=== PATIENT | female | born 1945 | race Caucasian/White ===

== ENCOUNTER → 2016-05-11 | Outpatient (CLI) | payer OTHER ==
[~2016-05-11] MED LIST: ADULT LOW DOSE81 MG; CITRACAL + D M1 EACH; CO Q-10100 MG PO; FAMVIR500 MG PO; FISH OIL 1,4001 EACH; LIPITOR20 MG; PERCOCET 5-3251 EACH PO; PROBIOTIC1 EAC1; TOPROL XL100 MG PO; VALSARTAN-HCTZ1 EACH; VITAMINC500
== END ==
LOC: RAD 14:19
DX: Z12.31 Encounter for screening mammogram for malignant neoplasm of breast (principal)

== ENCOUNTER → 2016-10-25 | Outpatient (CLI) | payer OTHER ==
--- NOTE | ~2016-10-25 | EKG ---
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
== END ==
LOC: CV 14:05
DX: E11.9 Type 2 diabetes mellitus without complications (principal)

== ENCOUNTER → 2017-05-16 | Outpatient (CLI) | payer OTHER ==
[~2017-05-16] MED LIST changes: -ADULT LOW DOSE81 MG; +ADULT LOW DOSE81 MG PO; +ALLOPURINOL 10100 M1 PO; +COLCHICINE0.6 MG PO; -FISH OIL 1,4001 EACH; +FISH OIL 1,4001 EACH PO; +GABAPENTIN 100100 MG PO; +HYDROCODONE-AP1 EAC6 PO; +INDOMETHACIN 2525 MG PO; -LIPITOR20 MG; +LIPITOR20 MG PO; +METFORMIN HCL500 MG PO; +MUCINEX600 MG PO; +PROBIOTIC1 EAC2 PO; +SENNA-DOCUSATE1 EACH PO; +TESSALON PERLE100 MG PO; +VALSARTAN-HCTZ1 EAC3 PO
== END ==
LOC: RAD 14:38
DX: Z12.31 Encounter for screening mammogram for malignant neoplasm of breast (principal)

== ENCOUNTER → 2017-10-19 | Outpatient (CLI) | payer OTHER ==
[2017-10-11 09:08] LABS: HEMATOCRIT 39.9 % (37.0-47.0); HEMOGLOBIN 13.5 gm/dL (12.0-15.0); MCH 29.7 pg (26.0-34.0); MCHC 33.9 g/dL (28.0-37.0); MCV 87.6 fL (80.0-100.0); RBC 4.55 mil/uL (4.20-5.00)
[2017-10-11 09:09] LABS: URINE BILIRUBIN NEGATIVE (Negative); URINE BLOOD NEGATIVE (Negative); URINE CLARITY CLEAR; URINE COLOR YELLOW; URINE GLUCOSE-RANDOM* NEGATIVE (Negative); URINE KETONES NEGATIVE (Negative); URINE NITRITE-REFLEX NEGATIVE (Negative); URINE PROTEIN (DIPSTICK) NEGATIVE (Negative); URINE SPECIFIC GRAVITY 1.025 (1.005-1.035); URINE UROBILINOGEN 0.2 E.U./dl (0.2-1.0)
[2017-10-11 09:11] LABS: URINE LEUKOCYTES-REFLEX TRACE (Negative)
[2017-10-11 09:16] LABS: CALCIUM 9.9 mg/dL (8.5-10.1); CREATININE 1.1 mg/dL (0.6-1.0); POTASSIUM 4.3 mmol/L (3.5-5.1)
[2017-10-11 09:22] LABS: PROTIME 9.7 Seconds (9.3-11.4)
[~2017-10-19] VITALS: Ht 162.6 cm; Wt 79.4 kg
--- NOTE | ~2017-10-19 | EKG ---
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
== END ==
LOC: PRE 09-18 11:20 → TBA 05:41 → LABMALL 05:48 → PRE 05:49 → EDSTATUS 18:12
PROVIDERS: Orthopaedic Surgery
DX: M17.12 Unilateral primary osteoarthritis, left knee (principal); E11.9 Type 2 diabetes mellitus without complications

== ENCOUNTER 2017-10-22 05:40 | Emergency (ER) | payer OTHER ==
[~2017-10-22] VITALS: Ht 162.6 cm; Wt 80.3 kg
[~2017-10-22 05:40] MED LIST changes: -COLCHICINE0.6 MG PO; -HYDROCODONE-AP1 EAC6 PO; -INDOMETHACIN 2525 MG PO; -SENNA-DOCUSATE1 EACH PO
[2017-10-22] MEDS ORDERED: SENNA-DOCUSATE1 EACH PO (06:42)
[2017-10-22] MEDS ORDERED: HYDROCODONE-AP1 EAC6 PO (06:42)
[2017-10-22] MEDS ORDERED: COLCHICINE0.6 MG PO (06:42)
[2017-10-22] MEDS ORDERED: INDOMETHACIN 2525 MG PO (06:42)
== END 2017-10-22 07:22 | disposition home or self-care (01) ==
LOC: ER 05:40
DX: M10.071 Idiopathic gout, right ankle and foot (principal); I10 Essential (primary) hypertension; E11.9 Type 2 diabetes mellitus without complications; E78.00 Pure hypercholesterolemia, unspecified; Z88.1 Allergy status to other antibiotic agents

== ENCOUNTER → 2017-11-16 | Outpatient (CLI) | payer OTHER ==
[~2017-11-16] MED LIST changes: +COLCHICINE0.6 MG PO; +HYDROCODONE-AP1 EAC6 PO; +INDOMETHACIN 2525 MG PO; +SENNA-DOCUSATE1 EACH PO
== END ==
LOC: CAT 08:32
DX: Z13.6 Encounter for screening for cardiovascular disorders (principal); E78.00 Pure hypercholesterolemia, unspecified

== ENCOUNTER → 2018-05-24 | Outpatient (CLI) | payer OTHER | LOC: ULTRA 09:41 | DX: R68.89 Other general symptoms and signs (principal) ==

== ENCOUNTER 2018-09-26 09:49 | Inpatient (IN) | payer OTHER ==
[~2018-09-26] VITALS: Ht 162.6 cm; Wt 80.9 kg
[2018-09-26 09:54] VITALS: BP 151/82
[2018-09-26 10:32] LABS: ANION GAP 11 mmol/L (7-16); BUN 18 mg/dL (7-18); CALCIUM 9.7 mg/dL (8.5-10.1); CHLORIDE 106 mmol/L (98-107); CO2 27 mmol/L (21-32); CREATININE 1.1 mg/dL (0.6-1.0); GLUCOSE 121 mg/dL (74-106); SODIUM 144 mmol/L (136-145)
[2018-09-26 10:42] LABS: ALBUMIN 3.9 g/dL (3.4-5.0); SGOT 22 U/L (15-37); SGPT 28 U/L (30-65); TOTAL BILIRUBIN 0.4 mg/dL (<0.1-1.0); TOTAL PROTEIN 7.4 g/dL (6.4-8.2); TROPONIN-I <0.06 ng/mL (<0.06)
[2018-09-26 11:10] LABS: HEMOGLOBIN 13.1 gm/dL (12.0-15.0); MCH 29.9 pg (26.0-34.0); MCHC 33.6 g/dL (28.0-37.0); MCV 88.8 fL (80.0-100.0); RBC 4.39 mil/uL (4.20-5.00); RDW 14.7 % (10.5-14.5); WBC 7.6 thou/uL (4.0-11.0)
[2018-09-26 14:18] VITALS: BP 154/67
[2018-09-26 15:26] VITALS: BP 153/63
[2018-09-26 15:45] LABS: CHOLESTEROL 184 mg/dL (<200); HDL CHOLESTEROL 39 mg/dL (>40); LDL CHOLESTEROL 108 mg/dL (<100); TC:HDL 4.7 Ratio (Not establshd); TRIGLYCERIDE 188 mg/dL (<150); VLDL 38 mg/dL (<40)
[2018-09-26 15:46] VITALS: BP 170/86
[2018-09-26 15:47] LABS: SERUM ASSESSMENT Clear
--- NOTE | 2018-09-26 15:55 | 2DMMODE ---
[facility] [place] [address] 2 D/M-MODE ECHOCARDIOGRAM Name: RACHELLE STANTON [place] Room #: 354-P ADM IN M.R.#: [id number] ������������� Admission: 09/26/18 ������������� Attend Phys: Farhana Mathew Discharge: ��� ������������� ��� Date of : 49 Date of Service: 09/26/18 1555 �� Report #: [id number] �������� ��������������������������������������������[id number] THIS REPORT FOR: //name// APPROVED REPORT Study performed: 09/26/2018 14:50:21 EXAM: Comprehensive 2D, Doppler, and color-flow Echocardiogram Patient Location: ER Room #: 4 Status: routine BSA: 1.83 HR: 78 bpm BP: 133/63 mmHg Rhythm: NSR Other Information Study Quality: Adequate Indications Diabetes Chest Pain Hypertension/HDD 2D Dimensions RVDd: 24.10 mm IVSd: 9.41 (7-11mm) LVOT Diam: 20.35 (18-24mm) LVDd: 44.19 mm PWd: 9.02 (7-11mm) Ascending Ao: 28.41 (22-36mm) LVDs: 30.13 (25-40mm) Aortic Root: 29.12 mm IVC: 14.00 mm Volumes Left Atrial Volume (Systole) Single Plane 4CH: 49.23 mL Single Plane 2CH: 37.60 mL LA ESV Index: 26.00 mL/m2 Aortic Valve AoV Peak Cortez.: 1.24 m/s AO Peak Gr.: 6.18 mmHg LVOT Max P.32 mmHg LVOT Max V: 0.91 m/s MASSIEL Vmax: 2.38 cm2 Mitral Valve E/A Ratio: 1.[address] [facility] [place] [address] 2 D/M-MODE ECHOCARDIOGRAM Name: RACHELLE STANTON MICHAEL Room #: 354-P [facility] IN [facility]#: [id number] ������������� Admission: 09/26/18 ������������� Attend Phys: Farhana Mathew Discharge: ��� ������������� ��� Date of : 49 Date of Service: 09/26/18 1555 �� Report #: [id number] �������� ��������������������������������������������[id number] MV Decel. Time: 151.51 ms MV E Max Cortez.: 0.90 m/s MV A Cortez.: 0.79 m/s MV PHT: 43.94 ms IVRT: 96.89 ms Pulmonary Valve PV Peak Cortez.: 0.98 m/s PV Peak Gr.: 3.84 mmHg Pulmonary Vein P Vein S: 0.51 m/s P Vein A: 0.22 m/s P Vein D: 0.36 m/s P Vein A Dur.: 110.7 msec P Vein S/D Ratio: 1.42 Tricuspid Valve TR Peak Cortez.: 2.68 m/s TR Peak Gr.: 28.65 mmHg PA Pressure: 32.00 mmHg Left Ventricle The left ventricle is normal size. There is normal LV segmental wall motion. There is normal left ventricular wall thickness. The left ventricular systolic function is normal. The left ventricular ejection fraction is within the normal range. LVEF is 55-60%. Grade II - pseudonormal filling dynamics. Right Ventricle The right ventricle is normal size. The right ventricular systolic function is normal. Atria The left atrium size is normal. The right atrium size is normal. Aortic Valve The aortic valve is normal in structure. No aortic regurgitation is present. There is no aortic valvular stenosis. Mitral Valve The mitral valve is normal in structure. Trace to mild mitral regurgitation. No evidence of mitral valve stenosis. Tricuspid Valve The tricuspid valve is normal in structure. There is mild tricuspid regurgitation. Estimated PAP 32 mmHg. There is mild [place] [address] 2 D/M-MODE ECHOCARDIOGRAM Name: RACHELLE STANTON [place] Room #: 354-P [facility] IN M.R.#: [id number] ������������� Admission: 09/26/18 ������������� Attend Phys: Farhana Mathew Discharge: ��� ������������� ��� Date of : 49 Date of Service: 09/26/18 1555 �� Report #: [id number] �������� ��������������������������������������������[id number] Pulmonic Valve The pulmonary valve is normal in structure. There is no pulmonic valvular regurgitation. Great Vessels The aortic root is normal in size. IVC is normal in size and collapses >50% with inspiration. Pericardium There is no pericardial effusion. <Conclusion> The left ventricle is normal size. There is normal left ventricular wall thickness. The left ventricular systolic function is normal. The left ventricular ejection fraction is within the normal range. Grade II - pseudonormal filling dynamics. The right ventricle is normal size. The left atrium size is normal. The aortic valve is normal in structure. Trace to mild mitral regurgitation. There is mild tricuspid regurgitation. Estimated PAP 32 mmHg. ��������������������������������������������� <ELECTRONICALLY SIGNED> ���������������������������������������� By: Flavio Womack MD ��������������������������������������������� 09/26/18 1555 1555 1555 Flavio Womack MD /INF
--- NOTE | 2018-09-26 16:15 | EKG ---
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 : 1945 Requested By: Gabriela Macias Order Number: [id number] MD: Omari Lima Measurements Intervals [place] Rate: 79 P: 65 [place]: 136 QRS: 41 QRSD: 96 T: 60 QT: 386 QTc: 443 Interpretive Statements Sinus rhythm Compared to ECG 10/11/2017 09:03:45 No significant changes Electronically Signed On 09-26-2018 16:15:35 CDT by Omari Lima [email or web address] ��������������������������������������������� <ELECTRONICALLY SIGNED> ���������������������������������������� By: Omari Lima MD ��������������������������������������������� 09/26/18 1615 1000 Jadiel Lima MD /RAFAEL
[2018-09-26 19:31] VITALS: BP 145/67
[2018-09-27] VITALS: BP 175/83
[2018-09-27 04:57] VITALS: BP 168/70
[2018-09-27 08:05] VITALS: BP 188/87
[2018-09-27] MEDS ORDERED: FELODIPINE 5 MG5 M1 PO (14:46)
[2018-09-27 15:05] VITALS: BP 188/87
== END 2018-09-27 16:18 | disposition home or self-care (01) | DRG 206 ==
LOC: ER 09:49 → EROBS 12:59 → 3W 12:59
PROVIDERS: Nurse Practitioner Adult Health; Physician Assistant; ADMIT Hospitalist
DX: M94.0 Chondrocostal junction syndrome [Tietze] (principal); C85.12 Unspecified B-cell lymphoma, intrathoracic lymph nodes; E78.00 Pure hypercholesterolemia, unspecified; N19 Unspecified kidney failure; E11.9 Type 2 diabetes mellitus without complications; M10.9 Gout, unspecified; I10 Essential (primary) hypertension; E78.5 Hyperlipidemia, unspecified; Z82.49 Family history of ischemic heart disease and other diseases of the circulatory system; Z86.711 Personal history of pulmonary embolism; Z90.49 Acquired absence of other specified parts of digestive tract; Z88.1 Allergy status to other antibiotic agents
CPT/HCPCS: 10879

== ENCOUNTER 2019-04-01 05:36 | Inpatient (IN) | payer OTHER ==
[2019-03-18 13:25] LABS: HEMATOCRIT 41.7 % (37.0-47.0); HEMOGLOBIN 13.5 gm/dL (12.0-15.0); MCH 29.1 pg (26.0-34.0); MCHC 32.5 g/dL (28.0-37.0); MCV 89.5 fL (80.0-100.0); RBC 4.66 mil/uL (4.20-5.00); RDW 14.8 % (10.5-14.5); WBC 8.7 thou/uL (4.0-11.0)
[2019-03-18 13:26] LABS: URINE BILIRUBIN NEGATIVE (Negative); URINE BLOOD NEGATIVE (Negative); URINE CLARITY CLEAR; URINE COLOR YELLOW; URINE GLUCOSE-RANDOM* NEGATIVE (Negative); URINE KETONES NEGATIVE (Negative); URINE LEUKOCYTES-REFLEX TRACE (Negative); URINE NITRITE-REFLEX NEGATIVE (Negative); URINE PROTEIN (DIPSTICK) NEGATIVE (Negative); URINE SPECIFIC GRAVITY 1.015 (1.005-1.035); URINE UROBILINOGEN 0.2 E.U./dl (0.2-1.0)
[2019-03-18 13:35] LABS: ALBUMIN 3.9 g/dL (3.4-5.0); CALCIUM 9.2 mg/dL (8.5-10.1); POTASSIUM 4.6 mmol/L (3.5-5.1)
[2019-03-18 13:39] LABS: PROTIME 9.8 Seconds (9.3-11.4)
[2019-03-19 00:09] LABS: GLYCOHEMOGLOBIN (HGB A1C) 6.2 % (4.8-5.6)
[~2019-04-01] VITALS: Ht 162.6 cm; Wt 76.7 kg
[~2019-04-01 05:36] MED LIST changes: +ALLOPURINOL 30300 M1 PO; +FELODIPINE 5 MG5 M1 PO; +LOSARTAN-HCTZ1 EAC3 PO; +NEURONTIN 300M300 M2 PO; +PROBIOTIC1 EAC7 PO
[2019-04-01 07:00] VITALS: BP 166/77
--- NOTE | 2019-04-01 14:12 | NUR ---
INITIAL ASSESSMENT: Pt evaluated for d/c planning needs. Reviewed chart and spoke with nurse, pt and spouse. pt is alert and oriented. Pt lives in house with spouse and was independent with ADL's prior to admission to the hospital. Pt has cane at home. Pt will need walker. Pt has [employer], so will need to use [employer] for DME. Pt is agreeable. Pt said she has already spoken with [facility] and will use them for her HH needs. Pt plans on returning home on d/c from hospital. Will remain available to assist as needed.
--- NOTE | 2019-04-01 18:54 | NUR ---
ASSUMED CARE OF THE PT AT 1315. PTS PAIN WAS NOT CONTROLLED, CALLED DOCTOR AND PAIN MEDICATIONS WERE ADJUSTED. PT IS A DIABETIC, NON INSULIN. VITAL SIGNS ARE NORMAL. HEMOVAC 150ML DRAINED WITHIN FIRST 2 HOURS. BREATHING NORMAL AND PT IS NOW ON NASAL CANNULA ON 2.0 L. POLAR PACK WAS ORDERED AND SENT TO PTS ROOM FROM PACU. PT BECAME UPSET, DIDNT UNDERSTAND THE PROCESS AFTER SX. EXPLAINED TO PT THAT IF ANY CONCERNS OR QUESTIONS TO ASK NURSE, PT UNDERSTOOD. SPOKE WITH DOCTOR REGARDING STATUS OF PT, DOCTOR UNDERSTOOD. AWAITING MEDICATIONS FROM RX. FALL PRECAUTIONS ARE IN PLACE, BED IS IN THE LOWEST POSITION AND CALL LIGHT IS WITHIN REACH. WILL CONTINUE TO MONITOR THE PT.
[2019-04-01 20:00] VITALS: BP 125/60
[2019-04-01 20:30] VITALS: BP 135/64
[2019-04-02 00:47] VITALS: BP 129/60
[2019-04-02 04:00] VITALS: BP 125/62
--- NOTE | 2019-04-02 04:15 | NUR ---
ASSUMED CARE OF PT @1900 PT ASSESSED AT START OF SHIFT. WITH C/O PAIN. PT AND SPOUCE CONCERNED ABOUT CARE RECEIVED POST SURGERY AND WHY PAIN MEDICATION IS NOT TAKING EFFECT. THIS NURSE EDUCATED PT AND SPOUCE ABOUT MEDICATION AND TX THEY VERBALIZIED UNDERSTANDING. SCHEDULED PAIN MEDS GIVEN AND PT HAD PARTIAL RELIEF, POLAR PACK IN PLACE, NEW IV TUBING CHANGED. PT INSTRUCTED ON HOW TO USE INCENTIVE SPIROMETER. SCD IN PLACE AND HEMOVAC IN PLACE. THIS NURSE OFFERED TO GET PT UP FROM BED THIS NIGHT STATED WILL LIKE TO GET UP IN THE AM. EDUCATED PT TO DO QUAD SETS WILL AWAKE. FALL PREC IN PLACE AND CALL LIGHT WITHIN REACH WILL CONT WITH POC TILL EOS.
[2019-04-02 06:09] LABS: HEMATOCRIT 29.1 % (37.0-47.0); HEMOGLOBIN 9.6 gm/dL (12.0-15.0); MCH 29.1 pg (26.0-34.0); MCHC 32.8 g/dL (28.0-37.0); MCV 88.8 fL (80.0-100.0); RBC 3.28 mil/uL (4.20-5.00); RDW 15.1 % (10.5-14.5); WBC 13.6 thou/uL (4.0-11.0)
[2019-04-02 07:20] VITALS: BP 127/60
--- NOTE | 2019-04-02 08:28 | O ---
[facility] [place] [address] OPERATIVE REPORT Name: RACHELLE STANTON Room #: 442-P ADM IN M.R.#: [id number] Admission: 04/01/19 Attend Phys: Raoul Angeles MD Discharge: Date of : 49 Report #: [id number] THIS REPORT FOR: //name// CC: Raoul Baezae Melvindanieljosé luis DATE OF SERVICE: 04/01/2019 PREOPERATIVE DIAGNOSIS: End-stage degenerative arthritis, left knee. POSTOPERATIVE DIAGNOSIS: End-stage degenerative arthritis, left knee. PROCEDURE: Left total knee arthroplasty. SURGEON: Raoul Angeles MD INDICATIONS: This 73-year-old female has complained of left knee pain for some time. We have scheduled previous total knee replacement in the past, but this was postponed due to other medical issues. She presents now for total knee replacement, noting ongoing knee pain, unresponsive to more conservative measures. DESCRIPTION OF PROCEDURE: The patient was taken to the operating room where she was placed under general anesthesia. Prophylactic intravenous antibiotics were administered. The left knee and leg were meticulously prepped and draped. A thigh tourniquet was applied and inflated to 300 mmHg. An anterior longitudinal incision was made and carried through the medial retinaculum. The patella was reflected laterally. Marked degenerative change in all 3 compartments was noted. The Noriega and Nephew knee system was utilized. Intramedullary guides were used on both the femur and the tibia. The femur was cut in 5 degrees of valgus and seemed best suited for a size 4 femoral component. The tibial surface was resected and seemed best suited for a size 3 tibial component. A trial reduction was performed and a 9 mm polyethylene insert fit nicely. This resulted in full knee extension and flexion beyond 135 degrees with good stability. The patellar surface was resected and a 35 mm patellar button fit nicely with appropriate anchor holes. The patella tracks nicely and seems to be stable. The trial components were removed. The bony surfaces were thoroughly irrigated. The intramedullary canal was blocked with bone block on both the femoral and tibial sides. Methyl methacrylate cement was mixed and injected into the porous surface of the tibia. The Noriega and Nephew size 3 tibial Suzan II tibial baseplate was then applied, this was impacted into position and seated nicely and appeared to be secure. All excess cement was removed from around its margin. A size 9 mm Legion cruciate retaining polyethylene insert was snapped into position on the tibial baseplate. This also seated nicely and appeared to [address] [address] OPERATIVE REPORT Name: RACHELLE STANTON MICHAEL Room #: 442-P [facility] IN .R.#: [id number] Admission: 04/01/19 Attend Phys: Raoul Angeles MD Discharge: Date of : 49 Report #: [id number] be secure. The size 4 left Noriega and Nephew Legion cruciate retaining femur was impacted on the distal femur. It seated nicely and appeared to be secure. A 35 mm Suzan II patellar resurfacing button was cemented onto the patella with appropriate anchor holes. It was secured with a patellar clamp until the cement had fully cured. All excess cement was removed around its margin. Once again, the patella seemed to track nicely and appears to be stable. The knee demonstrates full knee extension and flexion beyond 135 degrees. The knee was copiously irrigated. A single Hemovac was left in the wound. The fascia was then closed with multiple #1 Vicryl sutures. The tourniquet was deflated after a total tourniquet time of 55 minutes. Good hemostasis was confirmed. The subcutaneous tissues were then closed with 0 Monocryl and the skin closed with skin mary lou. A sterile dressing was applied. The patient was awakened and returned to recovery room in good condition. <ELECTRONICALLY SIGNED> By: Raoul Angeles MD 04/02/19 0828 0933 0946 Raoul Angeles MD /nt
[2019-04-02 09:04] LABS: CALCIUM 8.4 mg/dL (8.5-10.1); CREATININE 1.3 mg/dL (0.6-1.0); MAGNESIUM 1.6 mg/dL (1.8-2.4); POTASSIUM 4.1 mmol/L (3.5-5.1)
--- NOTE | 2019-04-02 11:12 | NUR ---
PT CARE ASSUMED AT 0700. A&Ox4. PT IV IN PLACE. FLUIDS COMPLEETE. ALL HOME MEDS STARTED UP AGAIN. PT AND OT EVALUATION TODAY. SCD'S IN PLACE. PICCO DRESSING INTACT AND DRY. POLARPACK IN PLACE AND RUNNING. PAIN IS BEIN CONTROLLED WITH SCHEDULAED TORADOL AND PERCOCET. DR. DAVILA HAS SEEN PT TODAY AND EXPLAINED TAPERING OF PAIN MEDICATIONS AND REASURED PT. OF PAIN MANAGEMENT. PT. TOLERATED PT WELL AND IS RESTING NOW. BED LOCKED, IN LOW POSITION, AND BED ALARM ON.
--- NOTE | 2019-04-02 16:33 | NUR ---
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
--- NOTE | 2019-04-02 16:58 | NUR ---
FAXED REFERRAL TO [facility] FOR A ROLLER WALKER FOR HOME RECEIVED CONFIRMATION PT TO DC TOMORROW WILL F/U WITH [facility] IN THE MORNING. DP TO FOLLOW.
[2019-04-02 19:36] VITALS: BP 125/75
[2019-04-02 20:16] VITALS: BP 125/75
[2019-04-03 04:15] VITALS: BP 100/45
[2019-04-03 05:37] LABS: CALCIUM 8.6 mg/dL (8.5-10.1); CREATININE 1.8 mg/dL (0.6-1.0); MAGNESIUM 2.3 mg/dL (1.8-2.4); POTASSIUM 4.4 mmol/L (3.5-5.1)
[2019-04-03 05:50] LABS: HEMATOCRIT 26.1 % (37.0-47.0); HEMOGLOBIN 8.6 gm/dL (12.0-15.0); MCH 29.4 pg (26.0-34.0); MCHC 33.1 g/dL (28.0-37.0); RBC 2.93 mil/uL (4.20-5.00); RDW 15.4 % (10.5-14.5)
[2019-04-03 08:02] VITALS: BP 69/35; BP 73/41
[2019-04-03 11:16] VITALS: BP 69/35
--- NOTE | 2019-04-03 11:25 | NUR ---
PT. CARE ASSUMED AT 0700. A&Ox4. BP 69/46 P:80. DR. MARIE CONTACTED. FLUIDS ORDERED. BP DID NOT APPROVE AT 6940 ANOTHER BAG OF FLUIDS ORDERED AND A STAT ABGS. PT IS SLEEPING AND HARD TO AROUSSE. POLAR PACK IN PLACE. PICCO DRESSING IN PLACE AND INTACT. SCD IN PLACE ON R. LEG. BED IN LOW POSITION AND LOCKED. BED ALARM ON. CALL LIGHT WITHIN PT. REACH. INFORM ABOUT PT. STATUS AND IN ROOM WITH HER.
[2019-04-03 11:49] LABS: PCO2 35.6 mmHg (35.0-45.0); PO2 89.9 mmHg (80.0-100.0); pH 7.345 (7.360-7.450); sO2 96.5 % (92.0-98.0)
[2019-04-03 13:35] VITALS: BP 93/48
[2019-04-03 17:04] VITALS: BP 96/36
[2019-04-03 19:12] VITALS: BP 113/60
--- NOTE | 2019-04-04 04:04 | NUR ---
ASSESSMENT: PT REMAIN ALERT AND ORIENT TIMES FOUR. DENIES PAIN IN LEFT KNEE. DID NOT REQUIRE ANY PAIN MEDS. WAS AT THE BED SIDE AT THE BEGINNING OF THE SHIFT. PT DID GET UP TO BSC, STATING THAT SHE WAS A LITTLE DIZZY. INSTRUCTED ON HOW TO TAKE EFFECTIVE BREATHS AND TO TAKE A SLOW PACE IN STANDING. PT REFUSED TO SAT IN CHAIR. WAS NAUSEA POST GETTING OFF OF THE BSC. ZOFRAN WAS GIVEN WITH GOOD RESULTS. PT LATER TOLERATED PO INTAKE, DID EAT ONE YOGART AND DRANK MORE WATER. MINIMAL URINE OUTPUT. PT URINATED 150ML AND WAS BLADDER SCANNED WITH ONLY 26MLS. WILL CONTINUE TO MONITOR UO. NO BM. VSS, AFEBRILE. BP INCREASED 113/60 HR 79. IVF CONTINUE AT 75ML/HR. SLOW PROGRESS TOWARDS DC GOALS, WILL CONTINUE TO MONITOR.
[2019-04-04 04:42] VITALS: BP 102/61
[2019-04-04 06:14] LABS: HEMATOCRIT 25.2 % (37.0-47.0); HEMOGLOBIN 8.3 gm/dL (12.0-15.0); MCH 29.5 pg (26.0-34.0); MCHC 32.8 g/dL (28.0-37.0); MCV 89.9 fL (80.0-100.0); RBC 2.8 mil/uL (4.20-5.00); RDW 15.2 % (10.5-14.5); WBC 10.7 thou/uL (4.0-11.0)
[2019-04-04 06:31] LABS: CALCIUM 7.9 mg/dL (8.5-10.1); POTASSIUM 4.6 mmol/L (3.5-5.1)
[2019-04-04 07:20] VITALS: BP 134/46
[2019-04-04 12:59] VITALS: BP 134/46
--- NOTE | 2019-04-04 14:58 | NUR ---
NOTIFIED NADYA FROM [facility] THAT PT DID NOT DC YESTERDAY AND WILL NOT DC TODAY EITHER DUE TO MEDICAL COMPLICATIONS.
[2019-04-04 16:00] VITALS: BP 112/48
[2019-04-04 19:25] VITALS: BP 152/53
[2019-04-04 20:07] VITALS: BP 112/48
--- NOTE | 2019-04-04 20:20 | NUR ---
PT CARE ASSUMED AT 0700. A&Ox4. PT VITALS STABLE. PT BLADDER SCANNED RETAINING 190. I&O POSITIVE 3000. DR. MARIE NOTIFIED. INSTRUCTIONS GIVEN TO CONSULT NEPHROLOGY, DISCONTINUE FLUIDS. NEPHROLOGY ORDERED FLUIDS AND KIDNEY PANNEL. VERIFIED THIS ORDERED AND INDUSTRIAL SOCIOLOGIST AWARE OF EDEMA AND NO OUTPUT. NO DIURETICS ORDERED. CREATINE AT 3.0 DR. DAVILA NOTIFIED AND CASE DISCUSSED. ORDER GIVEN TO CATHERIZE PT FOR RETENTION AND STRICT I&O. AFTER CATHERIZATION PT HAD A 225ML OUTPUT. NEPHROLOGY CONSULT IN THE MORNING.
--- NOTE | 2019-04-05 03:24 | NUR ---
ASSESSMENTz: PT REMAIN ALERT AND ORIENT TIMES FOUR. SEEMS TO BE MORE SLEEPIER THIS SHIFT IN COMPARISON TO LAST NIGHT. AT THE BEDSIDE. PT NOW HAS A VALDOVINOS, URINE OUTPUT REMAINS DIMINISHED EVEN POST VALDOVINOS. NEPHROLOGY WILL SEE PT TOMORROW. DR. DAVILA IS AWARE OF DECREASED URINE OUT PUT. AROUND 0230 THE VALDOVINOS WAS IRRIGATED AND ADVANCED. STILL NOT MUCH RETURN IN URINE. DID GET 60ML OF NORMAL SALINE IRRIGANT. VSS, AFEBRILE. BUT ACCORDING TO THE PT'S , 98.3 IS AN ELEVATED TEMP FOR PT. PECO DRESSING INTACT ON LEFT KNEE. PT DENIES PAIN OF LEFT KNEE AND WILL SLOWLY BEND LEG BACK AND FORTH R/T SLIGHT TIGHTNESS PER PT. POOR PROGRESS AT THIS TIME, WILL CONTINUE TO MONITOR.
[2019-04-05 04:25] VITALS: BP 153/59
[2019-04-05 07:25] VITALS: BP 145/60
[2019-04-05 07:31] LABS: ALBUMIN 2.3 g/dL (3.4-5.0); CALCIUM 7.9 mg/dL (8.5-10.1); PHOSPHORUS 6.8 mg/dL (2.5-4.9); POTASSIUM 4.6 mmol/L (3.5-5.1)
[2019-04-05 07:33] LABS: CREATININE 4.4 mg/dL (0.6-1.0)
--- NOTE | 2019-04-05 09:46 | EKG ---
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 ANDERSON : 1945 Requested By: Raoul Angeles Order Number: [id number] MD: Chucho Allison Measurements Intervals [place] Rate: 87 P: 80 [place]: 140 QRS: 74 QRSD: 87 T: 53 QT: 365 QTc: 439 Interpretive Statements Sinus rhythm Nonspecific ST and T wave abnormality Compared to ECG 09/26/2018 10:00:[address] and T wave abnormality is new Electronically Signed On 04-05-2019 9:46:18 LOSS PREVENTION SPECIALIST by Chucho Allison [email or web address] <ELECTRONICALLY SIGNED> By: Chucho Allison MD, [facility] 04/05/19 0946 1814 1814 Chucho Allison MD, [facility] /EPI
--- NOTE | 2019-04-05 15:02 | NUR ---
CASE DISCUSSED WITH ATTENDING. PT HAS HER ROLLER WALKER ALREADY. MEDICAL PROBLEMS BEING ADDRESSED. FOLLOWING.
[2019-04-05 15:37] VITALS: BP 155/59
--- NOTE | 2019-04-05 18:15 | NUR ---
PT ASSESSED AT START OF SHIFT. DRS. SEXTON AND JEANMARIE IN EARLY. DR. JENSEN TALKED W/ PT AND AT LENGTH. PT GIVEN IV LASIX THIS AM AND SHE DIURESED 475MLS. ADDITIONAL LASIX GIVEN THIS AFTERNOON. PT SLEPT MOST OF SHIFT. WAS VERY NAUSEATED THIS AM AND GIVEN ZOFRAN WHICH HELPED. PT NOT BEING ABLE TO EAT. DID WALK W/ THERAPY IN THE HALLS THIS AFTERNOON. LOOKS AND FEELS MUCH BETTER AT THIS TIME. MORE ALERT AND EATING APPLESAUCE. DR. MURRY UPDATED W/ PT CONDITION. DR. DAVILA OUT OF TOWN AND CALLED IN TO CHECK ON PT.
[2019-04-05 20:48] VITALS: BP 136/49
[2019-04-06 03:30] VITALS: BP 152/74
[2019-04-06 07:39] LABS: ALBUMIN 2.6 g/dL (3.4-5.0); CALCIUM 8.1 mg/dL (8.5-10.1); PHOSPHORUS 7.4 mg/dL (2.5-4.9); POTASSIUM 4.2 mmol/L (3.5-5.1)
[2019-04-06 07:44] LABS: CREATININE 5.5 mg/dL (0.6-1.0)
[2019-04-06 09:34] VITALS: BP 142/67
[2019-04-06 17:33] VITALS: BP 158/70
--- NOTE | 2019-04-06 18:46 | NUR ---
PT A&OX4. IV INTACT IN R FA. EDEMA NOTED THROUGHOUT. JUAN DRSG TO L KNEE INTACT WITH JUAN DRSG. DENIES ANY PAIN AT THIS TIME. NOTIFIED OF CR 5.5. SPOUSE AT BEDSIDE.
[2019-04-06 19:25] VITALS: BP 158/64
[2019-04-06 21:05] VITALS: BP 174/67
[2019-04-07 00:20] VITALS: BP 155/75
[2019-04-07 04:00] VITALS: BP 166/61
[2019-04-07 04:57] LABS: ALBUMIN 2.3 g/dL (3.4-5.0); CALCIUM 7.9 mg/dL (8.5-10.1); CREATININE 6.1 mg/dL (0.6-1.0); PHOSPHORUS 6.9 mg/dL (2.5-4.9); POTASSIUM 4.5 mmol/L (3.5-5.1)
--- NOTE | 2019-04-07 08:07 | NUR ---
PT LYING IN BED. DENIES PAIN. RESTING COMFORTABLY. NO NEEDS VOICED. CALL LIGHT WITHIN REACH. WILL CONTINUE TO PROVIDE FREQUENT OBSERVATION.
--- NOTE | 2019-04-07 08:35 | HC ---
[facility] [place] [address] CONSULTATION Name: RACHELLE STANTON Room #: 442-P ADM IN M.R.#: [id number] Admission: 04/01/19 Attend Phys: Raoul Angeles MD Discharge: Date of : 49 Report #: [id number] THIS REPORT FOR: //name// CC: Raoul Lindo REASON FOR CONSULTATION: Acute kidney injury. REASON FOR PRESENTATION: Post left knee replacement. HISTORY OF PRESENT ILLNESS: A 73-year-old with CKD stage 3, hypertension, baseline creatinine of around 1.2-1.3. She is also known to have history of PE, gout, degenerative joint disease, who had a left knee replacement done on 04/01. Postoperatively, she had issues with hypotension, to the extreme side of hypotension that her blood pressure went down to 69/37. She also received 6 doses of 15 mg Toradol. This has caused an acute kidney injury with a creatinine rising from 1.3 value to 4.4 as of this morning. She made little urine in the last 24 hours, mandating a Nephrology consultation. PAST MEDICAL HISTORY: 1. Degenerative joint disease. 2. Chronic kidney disease. 3. Hypertension. 4. B cell non-Hodgkin's lymphoma. 5. Pulmonary embolism. 6. Gout. 7. Melanoma. 8. Diabetes mellitus. PAST SURGICAL HISTORY: 1. Appendectomy. 2. Recent left knee replacement. SOCIAL HISTORY: Nonsmoker. Lives with her . HOME MEDICATIONS: Included Metformin, gabapentin, losartan hydrochlorothiazide. REVIEW OF SYSTEMS: GENERAL: No fever or chills, but significant weakness. CARDIOVASCULAR: No chest pain or palpitation. PULMONARY: No cough or hemoptysis. GASTROINTESTINAL: No nausea or vomiting. GENITOURINARY: Decreased urine output. MUSCULOSKELETAL: As per the history of present illness. PHYSICAL EXAMINATION: VITAL SIGNS: Temperature 36.3, pulse rate 88, respiratory rate 18, blood [facility] [address] [place] [address] CONSULTATION Name: RACHELLE STANTON Room #: [address] [place] [address] [place] [facility]#: [id number] Admission: 04/01/19 Attend Phys: Raoul Angeles MD Discharge: Date of : 49 Report #: [id number] pressure 145/60. HEAD AND NECK: No jugular venous distention. CHEST: Decreased air entry bilaterally. CARDIOVASCULAR: Regular with no rub detected. ABDOMEN: Soft, nontender with no hepatosplenomegaly. EXTREMITIES: Lower extremity swelling on the left side. LABORATORY VALUES: Reviewed. Creatinine is now up to 4.4, BUN is 66. Sodium is 128. Phosphorus is 6.8. ASSESSMENT, IMPRESSION AND PLAN: 1. Acute kidney injury due to acute tubular necrosis due to hypotension and Toradol. 2. Status post left knee replacement. 3. Her acute kidney injury is well explained by the hypotension and nonsteroidal anti-inflammatory medication that she utilized. 4. She received appropriate volume yesterday. Sodium is coming down. Discontinue IV fluid. 5. Try diuretics. 6. Continue to avoid Toradol. 7. Continue to hold Glucophage. 8. Avoid any other nephrotoxins. 9. We will continue to monitor her renal function. Phases of acute tubular necrosis explained for the patient and her spouse. She is in the worsening phase and it is expected that her creatinine will continue to rise. Hopefully, she will plateau her creatinine at one point and we will begin seeing some improvement in her renal function in the next few days. No dialysis indicated at this point. <ELECTRONICALLY SIGNED> By: Dulce Canales MD 04/07/19 0835 0847 0922 Dulce Canales MD /nt
[2019-04-07 09:18] VITALS: BP 151/58
--- NOTE | 2019-04-07 11:19 | NUR ---
PT CARE RESUMED AT 0700. A&OX4. PT. STILL VERY SLEEPY. PT IS REQUESTING A SHOWER. JUAN DRESSING INTACT. PT. POST OP DAY #6. POLAR PACK RUNNING. PT WALKED WITH PT TO THE END OF THE BALLARD, TOLERATED WELL WITH NO NAUSEA OR VOMITTING. PT. HAS A SMALL APPETITE TODAY. PT EDEMA IS A 2+ ON THE UPPER EXTREMITIES. VITALS STABLE. CALLED MD TO DISCUSS BP MEDS TO BE TAKEN OFF OF HOLD. BED IN LOW POSITION, LOCKED WITH BED ALARM ON. CALL LIGHT IN REACH. PRESENT IN. ALL QUESTEIONS ANSWERED.
[2019-04-07 17:21] VITALS: BP 142/62
[2019-04-07 20:28] VITALS: BP 177/71
--- NOTE | 2019-04-08 02:49 | NUR ---
PT LYING IN BED. DENIES NEEDS FOR PAIN MEDICATION. RESTING COMFORTABLY. NO NEEDS VOICED. CALL LIGHT WITHIN REACH. WILL CONTINUE TO PROVIDE FREQUENT OBSERVATION.
[2019-04-08 05:17] VITALS: BP 176/71
[2019-04-08 05:49] LABS: HEMATOCRIT 24.5 % (37.0-47.0); HEMOGLOBIN 8.2 gm/dL (12.0-15.0); MCH 29.3 pg (26.0-34.0); MCHC 33.3 g/dL (28.0-37.0); RBC 2.79 mil/uL (4.20-5.00); RDW 15.3 % (10.5-14.5); WBC 7.5 thou/uL (4.0-11.0)
[2019-04-08 06:04] LABS: ALBUMIN 2.4 g/dL (3.4-5.0); CALCIUM 8.6 mg/dL (8.5-10.1); CREATININE 6.2 mg/dL (0.6-1.0); PHOSPHORUS 6.8 mg/dL (2.5-4.9); POTASSIUM 4.9 mmol/L (3.5-5.1)
[2019-04-08 07:58] VITALS: BP 173/62
--- NOTE | 2019-04-08 11:27 | NUR ---
Assess due to length of stay. S/P left TKR. Also with ATN and followed by renal. No signficant wt changes. During visit, pt reports appetite just fair since surgery and current acute issues but usually eats fine. BG slightly elevated and pt wishes to be on carb controlled diet and have glucerna shake 1x day. Low nutrition risk
--- NOTE | 2019-04-08 12:18 | NUR ---
ASSUMED CARE OF THE PT AT 0700. PT WORKED WITH OT AND BP DROPPED AND PT BECAME FATIGUED, DOCTOR NOTIFIED. HÉCTORY DISCHARGING TO REHAB ON 5TH FLOOR, SPOKE WITH CASE MANAGEMENT. R FOREARM IV DRY AND INTACT. WORKED WITH PT AND WALKED DOWN THE HALLWAY, BECAME FATIGUED. POLAR PACK IS IN PLACE. FALL PRECAUTIONS ARE IN PLACE. PTS BS IS UNDER CONTROL, NO INSULIN FOR AM OR AFTERNOON. LUNGS ARE CLEAR, HR WAS ELEVATED, BUT ASSESSED LATER IN THE AM AND UNDER CONTROL. PTS CREATININE LEVELS ARE ELEVATING, DOCTOR ADVISED. JUAN DRESSING INTACT. EDEMA ON HANDS AND ARMS. CATHETER IS PATENT AND INTACT. BED IN LOWEST POSTION. [facility] ONTINUE TO MONITOR THE PT
[2019-04-08 15:27] VITALS: BP 185/72
--- NOTE | 2019-04-08 16:51 | NUR ---
CASE DISCUSSED WITH DRS ON CASE AND THEY WOULD LIKE FOR PT TO TRANSFER TO SO THEY CAN CONTINUE TO FOLLOW HER CLOSELY. Timur IS SEEKINGING AUTH FROM [facility].
[2019-04-08 20:08] VITALS: BP 179/82
[2019-04-09 04:05] VITALS: BP 151/69
--- NOTE | 2019-04-09 04:55 | NUR ---
PT AOX4. REPORTS FORGETFULNESS AT TIMES. PT REFERS TO AT BEDSIDE TO ASSIST WITH RETAINING INFORMATION AND ORIENTATION TO SITUATION. PT EXPRESSED CONCERN IN REGARDS TO RECENT CHANGE IN MEDICATIONS. PROVIDED PT REASSURANCE AND MEDICATION INFORMATION. ENCOURAGED PT AND PT TO DISCUSS MEDICATIONS WITH DOCTOR DURING ROUNDS. PT REFUSING HEPARIN UNTIL MEDICATION DISCUSSED WITH PRESCRIBING MD. PT REPORTING LEFT KNEE STIFFNESS WITHOUT PAIN. PT PRESENTS SUPINE. ENCOURAGED TO REPOSITION FREQUENTLY. PT REPORTS COMFORT AFTER BEING REPOSITIONED TO RIGHT SIDE WITH PILLOWS FOR SUPPORT, REFUSES TO BE REPOSITIONED FROM RIGHT SIDE. PT NOTED TO BE RESTING THROUGHOUT SHIFT WITHOUT INTERRUPTION OR OBSERVATION OF PAIN OR SOA. PT CONTINUES USE OF POLAR PACK AND VALDOVINOS CATHETER. DRESSING TO LEFT KNEE INTACT. ENCOURAGED PT AND PT TO NOTIFY STAFF FOR ALL CONCERNS. BED IN LOWEST POSITION, CALL LIGHT WITHIN REACH, BED ALARM ON. WILL CONTINUE TO MONITOR.
[2019-04-09 05:53] LABS: HEMATOCRIT 22.8 % (37.0-47.0); HEMOGLOBIN 7.5 gm/dL (12.0-15.0); MCH 29.4 pg (26.0-34.0); MCHC 33.1 g/dL (28.0-37.0); MCV 88.9 fL (80.0-100.0); RBC 2.56 mil/uL (4.20-5.00); RDW 15.1 % (10.5-14.5); WBC 9.8 thou/uL (4.0-11.0)
[2019-04-09 06:01] LABS: ALBUMIN 2.4 g/dL (3.4-5.0); CALCIUM 8.6 mg/dL (8.5-10.1); CREATININE 5.6 mg/dL (0.6-1.0); POTASSIUM 4.7 mmol/L (3.5-5.1)
[2019-04-09 08:10] VITALS: BP 178/85
--- NOTE | 2019-04-09 08:37 | NUR ---
PATIENT SEEN FOR REHAB CONSULT BY DR. BERNARD ON 04/08/19. PATIENT IS A CANDIDATE FOR ACUTE REHAB. AUTHORIZATION REQUESTED FROM INSURANCE COMPANY ON 04/08/19. AWAITING RESPONSE. SEMICONDUCTOR WAFERS ETCH OPERATOR INFORMED.
--- NOTE | 2019-04-09 10:52 | NUR ---
PT. CARE ASSUMED AT 0700. A&Ox4. PT GOT UP WITH OT AND WASHED UP AND IS DRESSED IN THE RECLINER. PT. CREATINE LEVELS ARE DROPPING. EDEMA IS +2 WITH GREAT URINE OUTPUT. POLAR PACK IN ROOM. VALDOVINOS IS PATENT WITH GREAT OUTPUT. PT. IS AWAITING TRANSFER TO TODAY. AWAITING INSURANCE APPROVAL. PT. DENIES HEPARIN AND IS REQUESTING ORAL MEDICATION. IV IS PATENT WITH NO REDNESS OR SWELLING. PT AMD EDUCATED ON BLOOD THINNER MEDICATIONS. BED IN LOW POSITION, LOCKED, AND BED ALARM ON. CALL LIGHT IN REACH.
[2019-04-09] MEDS ORDERED: IRON325 PO (12:28)
[2019-04-09] MEDS ORDERED: MIRALAX17 GM PO (12:29)
[2019-04-09] MEDS ORDERED: ELIQUIS2.5 MG PO (12:29)
[2019-04-09] MEDS ORDERED: COLACE 100 MG100 MG PO (12:29)
[2019-04-09] MEDS ORDERED: NORCO 5-325 TA1 EAC1 PO (12:33)
[2019-04-09] MEDS ORDERED: TYLENOL325 M1 PO (12:33)
[2019-04-09 16:35] VITALS: BP 153/54
--- NOTE | 2019-04-09 16:55 | NUR ---
INS AUTH HAS BEEN OBTAINED AND PT WILL TRANSFER TO 5N TODAY. SPOUSE AT BEDSIDE AND AGREEABLE TO THIS TRANSFER ONCE ORDERS OBTAINED AND BED IS AVAILABLE TODAY.
--- NOTE | 2019-04-17 11:02 | HC ---
[facility] [place] [address] CONSULTATION Name: RACHELLE STANTON Room #: 442-P [facility] IN M.R.#: [id number] Admission: 04/01/19 Attend Phys: Raoul Angeles MD Discharge: 04/09/19 Date of : 49 Report #: [id number] THIS REPORT FOR: //name// CC: Raoul Lindo DATE OF SERVICE: 04/08/2019 HISTORY OF PRESENT ILLNESS: The patient is a 73-year-old white female with a history of end-stage degenerative arthritis of the left knee, was admitted and underwent a left total knee arthroplasty on 04/01/2019. Her course has been complicated by ATN. She has been treated for pain with Toradol. She needed IV normal saline to assist with her hypertension along with medication adjustments. She has sustained acute renal failure/acute tubular necrosis with a rising creatinine and Nephrology involved. She has issues with increased extremity edema including upper extremities, especially both of her hands and distal arms as well as some lower extremity involvement. She has had some problems with dizziness, has unsteadiness. Nephrology is closely involved along with Internal Medicine. We are seeing her in rehabilitation medicine consultation. PAST MEDICAL HISTORY: Includes hypertension, hyperlipidemia, diabetes mellitus, peripheral neuropathy, beta cell non-Hodgkin's lymphoma, pulmonary embolism, gout. MEDICATIONS: Please see the full medication listing. ALLERGIES: ERYTHROMYCIN is noted. SOCIAL HISTORY: Lives in a house with her , two steps in. Premorbid cane ambulatory on occasion when she had gouty outbursts. REVIEW OF SYSTEMS: No current complaints of chest pain, shortness of breath or abdominal discomfort. She has had some dizziness. Complains of unsteadiness, extremity swelling. PHYSICAL EXAMINATION: GENERAL: A 73-year-old pleasant, somewhat overweight white female in no obvious distress. VITAL SIGNS: Temperature 36.5, pulse 102, respirations 18, blood pressure 173/62. She is alert, oriented. HEENT: Appeared to be benign. NEUROLOGIC: Cranial nerves grossly intact. Facies are symmetric. EXTREMITIES: She has functional range of motion of the upper extremities, although she has definite edema of her hands. Has some difficulty with end range with the puffiness of the fingers and hands into the wrists. In her lower [facility] [address] [place] [address] CONSULTATION Name: RACHELLE STANTON [place] Room #: 442[facility] IN .R.#: [id number] Admission: 04/01/19 Attend Phys: Raoul Angeles MD Discharge: 04/09/19 Date of : 47 Report #: [id number] extremities, her left knee is dressed. There is no focal calf swelling. She has some edema of the left lower extremity as expected. She has 1+ distal edema of the lower extremities. Functionally, she has had some unsteadiness with getting up, min assist with bed mobility, sit to stand is min assist. She will ambulate 110 feet min assist with a front-wheeled walker, some decreased left knee flexion. ASSESSMENT: A 73-year-old white female with the following problem list: 1. Left total knee arthroplasty 04/01/2019 for left knee degenerative arthritis. 2. Acute renal failure with acute tubular necrosis, probably due to question Toradol and hypotension. Nephrology is closely involved. Creatinine has been increasing. She has not needed dialysis at this point. Her last creatinine was 6.2. Her baseline on admission was 1.3. 3. Lower extremity as well as upper extremity edema. 4. Functional mobility and activities of daily living deficits. 5. Lower extremity neuropathy. 6. Diabetes mellitus. 7. Hypertension. 8. Hyperlipidemia. 9. Beta cell non-Hodgkin's lymphoma. 10. Pulmonary embolism. 11. History of gout. PLAN: Agree that the patient would benefit from an acute in-hospital inpatient rehabilitation stay. She certainly needs to remain hospitalized for close Nephrology assistance with her significant acute renal insufficiency/acute tubular necrosis. With this, she has increased swelling and edema. Problems with dizziness and decreased functional mobility, post total knee replacement. She would benefit from a needs, the inpatient acute intensive rehabilitation along with the close medical management. Would agree with transfer to the acute in-hospital inpatient rehabilitation [place] where all the medical consultants can continue to follow her care and where she can receive the interdisciplinary acute inpatient rehabilitation that she needs would be most appropriate. Insurance precertification to be obtained. <ELECTRONICALLY SIGNED> By: Raoul Ching MD 04/17/19 1102 1258 1514 Raoul Ching MD /[facility]
== END 2019-04-09 18:44 | DRG 469 ==
LOC: 4S 05:36 → TBA 05:36 → PRE 07:42 → 4S 11:18 → PRE 11:35 → 4S 04-09 18:44
PROVIDERS: Hospitalist; Internal Medicine; Nurse Practitioner; ADMIT Orthopaedic Surgery
PROC: 0SRD0J9 Replacement of Left Knee Joint with Synthetic Substitute, Cemented, Open Approach (ICD-10-PCS; principal; 2019-04-01)
DX: M17.12 Unilateral primary osteoarthritis, left knee (principal); N17.0 Acute kidney failure with tubular necrosis; D62 Acute posthemorrhagic anemia; E87.1 Hypo-osmolality and hyponatremia; C85.10 Unspecified B-cell lymphoma, unspecified site; N18.9 Chronic kidney disease, unspecified; M10.9 Gout, unspecified; E11.22 Type 2 diabetes mellitus with diabetic chronic kidney disease; I95.9 Hypotension, unspecified; I12.9 Hypertensive chronic kidney disease with stage 1 through stage 4 chronic kidney disease, or unspecified chronic kidney disease; T39.8X5A Adverse effect of other nonopioid analgesics and antipyretics, not elsewhere classified, initial encounter; E78.5 Hyperlipidemia, unspecified; E78.00 Pure hypercholesterolemia, unspecified; E11.40 Type 2 diabetes mellitus with diabetic neuropathy, unspecified; Z86.711 Personal history of pulmonary embolism; Z90.49 Acquired absence of other specified parts of digestive tract; Z79.1 Long term (current) use of non-steroidal anti-inflammatories (NSAID); Y92.89 Other specified places as the place of occurrence of the external cause; Z88.1 Allergy status to other antibiotic agents
CPT/HCPCS: 10102; 50010; 50101; 50415; 50954; 51130; 51225; 51320; 51412; 52001; 52282; 53364; 56525; 57095; 57104; 57180; 62110; 62900; 64039; 70005

== ENCOUNTER 2019-04-09 12:43 | Inpatient (IN) | payer OTHER ==
[~2019-04-09] VITALS: Ht 162.6 cm; Wt 90.7 kg
--- NOTE | ~2019-04-09 | PLAN ---
[facility] [place] [address] REHAB UNIT PLAN OF CARE Name: RACHELLE STANTON Room #: 504-1 ADM IN M.R.#: [id number] Admission: 04/09/19 Attend Phys: Raoul Ching MD Discharge: Date of : 49 Report #: [id number] THIS REPORT FOR: //name// CC: Raoul Lindo DATE OF SERVICE: 04/12/2019 PROGRESS NOTE/OVERALL PLAN OF CARE HISTORY OF PRESENT ILLNESS: The patient is seen back today in followup. She is in no distress. Temperature 97.4, pulse 81, respirations 17, blood pressure 158/69. She has been working in therapies with progress as far as transfers to standby assistance. Gait is 200 feet front-wheeled walker, contact guard. Active range of motion is 93 degrees supine flexion with supine extension -7, left knee. Her renal function is improving nicely with her course of acute tubular necrosis. Nephrology is closely involved. Creatinine today was 3.0. ASSESSMENT: 1. Degenerative arthritis, status post left total knee replacement. 2. Acute kidney insufficiency secondary to acute tubular necrosis. 3. Hypotension. 4. Acute blood loss anemia. 5. Diabetes mellitus type 2. 6. Hypertension. 7. Hyperlipidemia. 8. History of pulmonary embolism. PLAN: The overall plan of care is based on the preadmission screen, post-admission physician evaluation and information garnered from therapy assessments. 1. Estimated length of stay is probably mid next week. We will see how she is progressing. 2. Medical prognosis is reasonably good. 3. Anticipated interventions includes the interdisciplinary acute inpatient rehabilitation program. 4. Anticipated functional outcomes would be for the patient to become modified independent with transfers, mobility and ADLs with continued improvement of her kidney function and further improvement of endurance. 5. Discharge destination would be back to the home setting. 6. Expected therapy by discipline includes PT and OT 1-1/2 hours per day each [facility] [address] [place] [address] REHAB UNIT PLAN OF CARE Name: RACHELLE STANTON [facility] Room #: 504-1 ADM IN [facility]#: [id number] Admission: 04/09/19 Attend Phys: Raoul Ching MD Discharge: Date of : 49 Report #: [id number] five days a week throughout the duration of the acute inpatient rehabilitation stay. By: [id number] Raoul Ching MD /EDDIE
--- NOTE | ~2019-04-09 | HC ---
[facility] [place] [address] CONSULTATION Name: RACHELLE STANTON Room #: 504-1 ADM IN M.R.#: [id number] Admission: 04/09/19 Attend Phys: Raoul Ching MD Discharge: Date of : 49 Report #: [id number] THIS REPORT FOR: //name// CC: Raoul Baezae Guicho DATE OF SERVICE: 04/13/2019 NEUROBEHAVIORAL STATUS EXAMINATION ATTENDING PHYSICIAN: Raoul Ching MD JAVA ORACLE DEVELOPER: Александр Stearns, PhD CLINICAL PRESENTATION: The patient is a 73-year-old female admitted to the hospital on 04/01/2019 with end-stage degenerative arthritis of the left knee. She underwent a left total knee arthroplasty on 04/01/2019 and had a course complicated by hypotension. She was treated for pain with Toradol. The patient required IV normal saline with her hypotension along with medication. She sustained acute renal failure with acute tubular necrosis with a rising creatinine. She had some problems with dizziness and unsteadiness, and was admitted for acute in-hospital inpatient rehabilitation. Her assessment on admission to the rehab unit included left total knee arthroplasty for left degenerative arthritis, acute renal failure with acute tubular necrosis. Markedly elevated creatinine as noted with Nephrology, left lower extremity as well as upper extremity edema, functional mobility and ADL deficits, lower extremity neuropathy, diabetes mellitus, hypertension, hyperlipidemia, B-cell non-Hodgkin's lymphoma, pulmonary embolism and a history of gout. A complete description of her medical condition and history along with medications can be found in her medical record. Neuropsychological consultation was requested to provide assistance in the assessment of cognitive and emotional status and to provide recommendations and services. Prior to this most recent admission, the patient was living independently with her in their home. She has no children. She is a high school graduate with a 2-year associate of arts degree. 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 TECHNIQUES UTILIZED: Clinical interview, review of medical records, staff consultation and behavioral observation, mini mental status exam 2 standard version and clock drawing. EXAMINATION FINDINGS: The patient was alert and cooperative with the assessment. She accurately described events surrounding her admission. There is no evidence of aphasia. Her thoughts are logical and goal oriented. There [address] [address] CONSULTATION Name: RACHELLE STANTON [place] Room #: 504-1 ADM IN ..#: [id number] Admission: 04/09/19 Attend Phys: Raoul Ching MD Discharge: Date of : 49 Report #: [id number] is no evidence of thought disorder. She does not report auditory or visual hallucinations. She describes initial amnestic period prior to her admission that is associated with renal failure. Her symptoms are reported to include decreased appetite and variability in memory. She describes some increased anxiety and was tearful during the interview. She is worried about her medical well-being. However, she recognizes the improvement in her functioning. The patient does report some what appears to be myoclonus in her hands and she is attempting to use upper extremity dexterity for both eating and texting. Sleep was reported as within normal limits. Her performance on the MMSE 2 brief version within normal limits with a raw score 16/16. She is alert and oriented and not showing any deficits in immediate recall. Performance on the MMSE 2 standard version is within normal limits with a raw score of 28/30. The patient was 3/5 for serial sevens suggesting some difficulty in concentration. Mood appeared anxious during the assessment. The patient appears to be presenting with mild degree of anxiety that could be interfering or contributing to variability in cognition. Difficulty with concentration is suggested. The patient also describes a possible myoclonus when engaged in upper extremity motor movement. DIAGNOSTIC IMPRESSION: Adjustment disorder with anxious mood. The patient describes a period of initial confusion and disorientation. While she does not feel her cognition is back to normal quite yet, it is likely a function of her continued recovery from renal failure. RECOMMENDATIONS: She would benefit from the use of relaxation strategies to assist in the management of anxiety. Consider assessment for possible myoclonus regarding her upper extremity, hand movement. If continued cognitive disorder is noted following discharge, an outpatient neuropsych may be of benefit to clarify cognitive status. Thank you very much for allowing me to provide the consultation on this patient. By: [id number] Александр Stearns, PhD /nt
[~2019-04-09 12:43] MED LIST changes: +COLACE 100 MG100 MG PO; +ELIQUIS2.5 MG PO; +IRON325 PO; +MIRALAX17 GM PO; +NORCO 5-325 TA1 EAC1 PO; +TYLENOL325 M1 PO
--- NOTE | 2019-04-09 19:58 | NUR ---
PT ARRIVED TO UNIT APPROX 1830. AT BEDSIDE. CONSENTS SIGNED, ROOM EDUCATION PROVIDED, PT MADE COMFORTABLE IN BED AND POLAR PACK FILLED AND APPLIED PER PT REQUEST. INFORMED ONCOMING NURSE OF NEED TO FINISH ADMISSION AND WHAT HAD BEEN COMPLETED, ADMISSION CHECKLIST CHARTED. FALL PRECAUTIONS IN PLACE. PT DENIES FURTHER NEEDS AT THIS TIME.
[2019-04-09 20:15] VITALS: BP 111/60; BP 159/81
--- NOTE | 2019-04-10 02:37 | NUR ---
PT CAME TO UNIT DURING SHIFT CHANGE. HAD BEEN MADE COMFORTABLE IN ROOM. AT BEDSIDE. PT ASSESSMENT DONE AND VSS. MEDS GIVEN WHEN THEY WERE AVAILABLE AND WELL TOLERATED. PT REFUSED ANY LAXATIVES DUE TO HAVING A LARGE SOFT BM TODAY. SLEEPING WELL. HOURLY ROUNDING. CALL LIGHT IN REACH. WILL CONTINUE TO MONITOR.
[2019-04-10 04:27] LABS: HEMATOCRIT 22.1 % (37.0-47.0); HEMOGLOBIN 7.1 gm/dL (12.0-15.0); MCH 28.8 pg (26.0-34.0); MCHC 32.3 g/dL (28.0-37.0); MCV 89.1 fL (80.0-100.0); RBC 2.48 mil/uL (4.20-5.00); RDW 15.3 % (10.5-14.5); WBC 11.6 thou/uL (4.0-11.0)
[2019-04-10 04:30] LABS: ALBUMIN 2.4 g/dL (3.4-5.0); CALCIUM 8.3 mg/dL (8.5-10.1); CREATININE 4.9 mg/dL (0.6-1.0); PHOSPHORUS 5.3 mg/dL (2.5-4.9); POTASSIUM 4.9 mmol/L (3.5-5.1)
[2019-04-10 07:45] VITALS: BP 174/84
--- NOTE | 2019-04-10 11:08 | NUR ---
ASSUMED CARE AT 0700. PATIENT IS ALERT AND ORIENTED X4. PATIENT IZAGUIRRE'S, DIRECTOR MARKETING ANALYTICS ARE EQUAL. LUNGS ARE CLEAR AND DEMINISHED. PATIENT ABD IS SOFT WITH BSX4. PATIENT IS UP WITH WITH ASSIST OF 1 STAFF WITH GAIT BELT AND WALKER. PATIENT HAS POLAR ICE MACHINE TO LEFT KNEE FOR PAIN CONTROL. PATIENT IS WEIGHT BEARING TOLERATED. PATIENT HAS S.L. IN HER RIGHT FORARM. FALL AND SAFETY PROTOCOLS IN PLACE. DENIES PAIN AT THIS TIME. CONTINUES TO PROGRESS TOWARDS D/C GOALS. WILL CONTINUE TO MONITER.
--- NOTE | 2019-04-10 12:12 | NUR ---
chart review, pt up in bed, a & o x 4 was working with physical therapy. pt able to make her needs know. intro to cm, dcp and team meeting. will cont following as needed for dc needs.
--- NOTE | 2019-04-10 13:19 | NUR ---
Nutrition: pt admitted to rehab unit S/P left total knee arthroplasty, degenerative arthritis. Seen due to consult related to wound which is surgical incision. Pt intake documented as 75-90% last few days. Enjoys glucerna daily. BG 121-154 with recent A1C 6.2. No DM meds at present. No recent weight loss, rather fluid related gain per pt. RD reviewed adequate protein for wound healing and instructed on meal ordering as desired. Low nutrition risk.
[2019-04-10 19:45] VITALS: BP 155/78
--- NOTE | 2019-04-11 03:26 | NUR ---
ASSUMED CARE AT APPROX 1900 EVENING 04/10. PT LYING IN BED WITH HEAD OF BED ELEVATED DOZING OFF AND ON. PT ALERT AND ORIENTED X4, APPROPRIATE AND COOPERATIVE. VALDOVINOS TO DD WITH CLEAR, YELLOW URINE TO BAG. POLAR PACK OVER KNEE. PT DENIES PAIN. PT TOOK HS MEDS WITH WATER TOLERATING WELL. PT APPEARS TO BE SLEEPING SOUNDLY. STAYED THE NIGHT AT BEDSIDE PREFERRING TO SLEEP IN RECLINER. BED ALARM ON AND CALL LIGHT IN REACH. WILL CONTINUE TO MONITOR.
--- NOTE | 2019-04-11 08:09 | NUR ---
ASSUMED CARE AT 0700. PATIENT IS ALERT AND ORIENTED X4. PATIENT IZAGUIRRE'S, FORKLIFT MECHANIC ARE EQUAL. LUNGS ARE CLEAR. ABD IS SOFT WITH BSX4. PATIENT HAS VALDOVINOS TO DD, DRAINING LOVELY COLORED URINE. LEFT KNEE DRESSING IS DRY AND INTACT. POLAR ICE MACHINE CONTINUES TO KEEP PATIENT KNEE PAIN UNDER CONTROL. UP WITH ASSIST OF ONE STAFF AND GAIT BELT AND WALKER. FALL AND SAFETY PROTOCOLS IN PLACE. DENIES PAIN AT THIS TIME. CONTINUES TO PROGRESS SLOWLY TOWARDS D/C GOALS. S.L. IN PATIENTS RIGHT F.A. PATENT AND INTACT. IV SITE WITHOUT REDNESS OR SWELLING. WILL CONTINUE TO MONITER.
[2019-04-11 10:35] VITALS: BP 171/71
[2019-04-11 19:29] VITALS: BP 158/69
--- NOTE | 2019-04-12 03:42 | NUR ---
VALDOVINOS TO DD, GOOD AMOUNT CLEAR YELLOW URINE. BLOOD SUGAR 161 AT HS, DIET CONTROLLED. DECLINED MIRALAX AT HS DUE TO BM ALREADY 04/11. ONLY TYLENOL FOR PAIN, POLAR PACK CONTINUES AT MEDIUM COOLING, HERE AND KNOWS HOW TO USE IT AND PLANS ON TAKING IT HOME WITH THEM. UP TO BATHROOM WITH ONE PERSON ASSIST, GAIT BELT, AND WALKER. PLEASANT, PLANS TO TAKE HYDROCODONE PRIOR TO THERAPY TO MANAGE PAIN AND INCREASE MOBILITY.
[2019-04-12 06:16] LABS: ALBUMIN 2.8 g/dL (3.4-5.0); CALCIUM 8.5 mg/dL (8.5-10.1); PHOSPHORUS 5.6 mg/dL (2.5-4.9); POTASSIUM 4.4 mmol/L (3.5-5.1)
[2019-04-12 09:30] VITALS: BP 175/87
--- NOTE | 2019-04-12 16:28 | NUR ---
CM NOTIFIED BY 5N TEAM THAT WILL RE TEAM AND POSSIBLE DC HOME ON HH
--- NOTE | 2019-04-12 19:00 | NUR ---
ASSUMED CARE OF PT AT 0715. PT IS A&OX4 AND VITAL SIGNS ARE STABLE. PT REPORTS PAIN IN LEFT KNEE, MANAGED WITH PO MEDCATIONS AND POLAR PACK, PARTICIPATED IN SCHEDULED THERAPIES. ACCU CHECKS ACHS. JUAN DRESSING TO LLE REINFORCED THIS SHIFT. +1 BLE EDEMA, PT ELEVATED BLE WHEN IN BED OR RECLINER. VALDOVINOS CATHETER IN PLACE, DRAINING APPROPRIATELY, SECURED TO LEG, 1200ML OUTPUT THIS SHIT. CALLS APPROPRIATELY FOR ASSISTANCE AND FALL PRECAUTIONS IN PLACE. NURSING WILL CONTINUE TO MONITOR.
[2019-04-12 19:10] VITALS: BP 164/68
--- NOTE | 2019-04-13 01:00 | NUR ---
ASSUMED CARE AT APPROX 1900 EVENING 04/12. PT LYING IN BED WITH HEAD OF BED ELEVATED AT CHANGE OF SHIFT. PT ALERT AND ORIENTED X4, APPROPRIATE AND COOPERATIVE. POLAR PACK TO LEFT KNEE WITH PT REPORTING PAIN RELIEF. VALDOVINOS TO DD WITH YELLOW URINE TO BAG. PT ASSISTED UP TO BATHROOM TO HAVE BM BEFORE FALLING ASLEEP FOR NIGHT. AT BEDSIDE SLEEPS IN RECLINER PER HIS REQUEST. BED ALARM ON AND CALL LIGHT IN REACH. WILL CONTINUE TO MONITOR.
--- NOTE | 2019-04-13 07:49 | NUR ---
ASSUMED CARE AT 0700. PATIENT IS ALERT AND ORIENTED X4. PATIENT IZAGUIRRE'S, INTELLIGENCE OPERATIONS ARE EQUAL. LUNGS ARE CLEAR. ABD IS SOFT WITH BSX4. PATIENT HAS VALDOVINOS TO DD, DRAINING LOVELY COLORED URINE. PATIENT HAS POLAR PACK TO LEFT KNEE FOR COMFORT. PATIENT HAS TRACE EDEMA IN HER LOWER EXTREMITIES. SCD ON THE RIGHT INTACT. DRESSING TO LEFT KNEE DRY AND INTACT. FALL AND SAFETY PROTOCOLS IN PLACE. DENIES PAIN AT THIS TIME. CONTINUES TO PROGESS TOWARDS D/C GOALS. WILL CONTINUE TO MONITER.
[2019-04-13 10:01] VITALS: BP 180/73
--- NOTE | 2019-04-13 16:21 | NUR ---
THIS IS DAY #4 WITH THE VALDOVINOS CATHETER. PATIENT CONTINUES TO DRAIN LOVELY COLORED URINE.
--- NOTE | 2019-04-13 16:22 | NUR ---
PATIENT INFORMED THIS PAINTER BOTTOM THAT SHE ACCIDENTLY PUT HER MOUTH GUARD ON HER LUNCH TRAY AND IT WENT DOWN TO DIETARY. DIETARY WAS NOTIFIED, BUT STATED THAT THE 5N TRAYS WERE SCRAPED AT 1330. THE DIETARY EMPLOYEE THAT HAD 5N'S CART HAD ALREADY LEFT FOR THE DAY AT 1530, BUT THEY WOULD TRY TO CONTACT HIM TO SEE IF HE FOUND THE MOUTH GUARD AND PUT IT UP SOME WHERE IN THE DIETARY DEPT. E-MAIL WAS ALSO SENT TO [facility] FOR ANY ASSISTANCE HE COULD PROVIDE.
[2019-04-13 20:05] VITALS: BP 185/79
--- NOTE | 2019-04-14 04:52 | NUR ---
REPORTS PAIN UNDER CONTROL WITH TYLENOL AND POLAR PACK. GIVEN [employer] INFO ABOUT [facility]. HE AND PATIENT UNDERSTAND THAT DR MURRY IS HAVING LAB WORK DRAWN 04/15 AND MAY DECIDE TO D/C [facility] AT THAT TIME, WILL CONTINUE STRICT I&O UNTIL THEN.
[2019-04-14 07:30] VITALS: BP 183/78
--- NOTE | 2019-04-14 14:54 | NUR ---
ASSUMED CARE OF PT AT 0715. PT IS A&OX4 AND VITAL SIGNS ARE STABLE. PT REPORTS PAIN IN LEFT KNEE, MANAGED WITH PO MEDICAITONS AND POLAR PACK. PT AMBULATED >250 FEET WITH NURSING STAFF ON UNIT. VALDOVINOS CATHETER IN PLACE, SECURED TO LEG, DRAINING APPROPRIATELY WITH APPROXIMATELY 200ML PER HOUR. +1 PITTING EDEMA TO BLE, LEGS ELEVATED WHEN IN BED. AT BEDSIDE. CALLS APPROPRIATELY FOR ASSISTANCE. FALL PRECAUTIONS IN PLACE AND NURSING WILL CONTINUE TO MONITOR.
[2019-04-14 19:50] VITALS: BP 167/82
--- NOTE | 2019-04-15 00:54 | NUR ---
PT ASSESSMENT COMPLETED AND VSS. MEDS GIVEN ORDERED AND WELL TOLERATED. FALL PRECAUTIONS IN PLACE. UP TO THE BATHROOM WITH ASST/GAIT/WALKER/VALDOVINOS. SUPPORTIVE AT BEDSIDE. MODERATE SOFT BROWN STOOL THIS EVENING. SCHEDULED TYLENOL HELPFUL FOR KNEE DISCOMFORT. DSG ON SURGICAL KNEE WNL. NEURO CHECKS WNL. POLAR PACK IN PLACE. SLEEPING WELL. WILL CONTINUE TO MONITOR FREQUENTLY.
[2019-04-15 05:09] LABS: ALBUMIN 2.8 g/dL (3.4-5.0); CALCIUM 9.1 mg/dL (8.5-10.1); PHOSPHORUS 4.4 mg/dL (2.5-4.9); POTASSIUM 3.9 mmol/L (3.5-5.1)
[2019-04-15 05:21] LABS: CREATININE 1.8 mg/dL (0.6-1.0)
[2019-04-15 08:00] VITALS: BP 171/80
--- NOTE | 2019-04-15 13:16 | NUR ---
Nutrition: Followed up with pt due to consult received related to renal diet. Pt is not currently on renal diet only carb controlled. Renal function noted to be improving per nephrology. Labs noted. Discussed limiting Na+ intake. K+ WNL. Nsg reports consult no longer needed. Intake is good, 75-100% of meals. Drinks Glucerna daily for pm snack. No questions related to DM diet. BG 85-182. No new interventions planned. Low nutrition risk.
[2019-04-15 14:20] LABS: HEMATOCRIT 25.8 % (37.0-47.0); HEMOGLOBIN 8.1 gm/dL (12.0-15.0); MCH 28.7 pg (26.0-34.0); MCHC 31.6 g/dL (28.0-37.0); RBC 2.83 mil/uL (4.20-5.00); RDW 15.8 % (10.5-14.5); WBC 20.7 thou/uL (4.0-11.0)
[2019-04-15 14:27] LABS: URINE BILIRUBIN NEGATIVE (Negative); URINE BLOOD 2+ (Negative); URINE CLARITY CLEAR; URINE COLOR YELLOW; URINE GLUCOSE-RANDOM* NEGATIVE (Negative); URINE KETONES NEGATIVE (Negative); URINE NITRITE-REFLEX NEGATIVE (Negative); URINE PROTEIN (DIPSTICK) NEGATIVE (Negative); URINE UROBILINOGEN 0.2 E.U./dl (0.2-1.0)
[2019-04-15 14:28] LABS: URINE LEUKOCYTES-REFLEX 3+ (Negative)
[2019-04-15 14:36] LABS: BACTERIA-REFLEX 1-9 Few /HPF (None Seen); CASTS None Seen /LPF (None Seen); CRYSTALS None Seen /LPF (None Seen); SQUAMOUS 0-3 Few /LPF (0-3); URINE RBC 3-10 Few /HPF (0-2); URINE WBC-REFLEX >25 Many /HPF (0-5)
[2019-04-15 20:24] VITALS: BP 176/80
--- NOTE | 2019-04-15 20:39 | NUR ---
ASSUMED CARE OF PT AT 0715. PT IS A&OX4 AND VITAL SIGNS ARE STABLE. PT REPORTS PAIN IN LEFT KNEE, MANAGED WITH PO MEDICATIONS, PARTICIPATED IN SCHEDULED THERAPIES. PER FLORENTINO INSIDE BARREL LATHE OPERATOR, NURSING TO DO VOIDING TRIAL WITH CLAMPING OF CATHETER IN AM. PT CATHETER CLAMPED AT 1030 AND PT REPORTED URGE TO URINATE AT 1215, VALDOVINOS UNCLAMPED AT 325ML DRAINED FROM THE CATHETER. ORDERS RECEIVED TO REMOVE VALDOVINOS CATHETER. CATHETER REMOVED AT 1830. PT REPORTED SOME BLADDER FULLNESS OVERNIGHT AND HAD LARGE AMOUNT OF MUCOUS IN CATHETER IN AM. ORDERS RECEIVED FOR UA, INDICATED UTI AND PT STARTED ON PO ANTIBIOTIC PER MANINDER GOOD. DR DAVILA ON UNIT THIS AFTERNOON AND GAVE VERBAL ORDER FOR NURSING TO REMOVE LEXIE AND PLACE STERI STRIPS. 33 LEXIE REMOVED FROM L KNEE INCISION. SITE IS WELL APPROXIMATED WITH NO DRAINAGE, MINIMUM REDNESS AND EDEMA TO THE SITE. BLOOD GLUCOSE TRENDS ELEVATED, ORDERS TO START LINAGLIPTIN. PT HAS PERIODS OF ANXIETY, PT ENCOURAGED TO USE BREATHING TECHNIQUES, ASK QUESTIONS, AND TAKE NOTES. AT BEDSIDE THIS EVENING. PER THERAPIES, PT IS MOD I IN ROOM, PT CALLS WHEN ASSISTANCE IS NEEDED. FALL PRECAUTIONS IN PLACE AND NURSING WILL CONTINUE TO MONITOR.
--- NOTE | 2019-04-16 04:33 | NUR ---
UP TO TOILET WITH STEADY GAIT. STAYING OVERNIGHT AND HAS NO PROBLEM DISCONNECTING AND RECONNECTING POLAR PACK. PATIENT STAYING OUT OF PAIN WITH ONLY TYLENOL AND POLAR PACK TO THE POINT OF TURNING DOWN THE POLAR PACK ABOUT A THIRD SO THAT SHE WASN'T SO CHILLY.
[2019-04-16 05:30] LABS: ALBUMIN 2.8 g/dL (3.4-5.0); CREATININE 1.7 mg/dL (0.6-1.0); PHOSPHORUS 4.7 mg/dL (2.5-4.9); POTASSIUM 4.5 mmol/L (3.5-5.1)
[2019-04-16 09:29] VITALS: BP 152/72
--- NOTE | 2019-04-16 13:47 | NUR ---
team meeting, recommendation: dc [facility] (pt, and nursing) with [facility], then transfer to outpt. no dme needs. mod I
--- NOTE | 2019-04-16 16:05 | NUR ---
DISCHARGE PLANNING. ANTICIPATED DISCHARGE PLANNED FOR 04/17/19. HOME HEALTH RECOMMENDED AT DISCHARGE. PATIENT REFERRAL FAXED TO [facility] PER REQUEST. CALL PLACED TO [facility] INTA[facility], SPOKE WITH JANENE. JANENE TO REVIEW AND NOTIFY. AWAITING RESPONSE. FOLLOWING.
[2019-04-16 19:00] VITALS: BP 167/60
--- NOTE | 2019-04-16 20:27 | NUR ---
ASSUMED CARE OF PT AT APPROX 0700. PT IS ALERT AND ORIENTED X4, ASSESSMENT CHARTED. PT HAD SMALL VASAL VAGAL EPISODE DURING PT TODAY RECOVERED WELL EDUCATED ON HOW TO AVOID AND BE AWARE OF SIGNS. PT UNDERSTANDS. NAD THIS SHIFT. PAIN CONTROLLED. PT TO DC TOMORROW. PT WORKING WELL TOWARDS POC GOALS.
--- NOTE | 2019-04-17 04:00 | NUR ---
UP TO TOILET SAFELY WITH PROVIDING SBA, AND DISCONNECTING POLAR PACK. PATIENT CONCERNED ABOUT DIZZY EPISODE YESTERDAY AND IS DECIDING TO BE CAREFUL WITH TIMING OF MEDS WHEN SHE IS AT HOME. PLANS TO FOLLOW UP WITH DR MURRY AND DR SEXTON TO MONITOR HER KIDNEY FUNCTION
[2019-04-17 06:12] LABS: ALBUMIN 2.9 g/dL (3.4-5.0); CALCIUM 9.2 mg/dL (8.5-10.1); CREATININE 1.7 mg/dL (0.6-1.0); PHOSPHORUS 4.7 mg/dL (2.5-4.9)
[2019-04-17 08:37] VITALS: BP 150/64
[2019-04-17 09:59] VITALS: BP 150/64
[2019-04-17 10:47] VITALS: BP 150/64
--- NOTE | 2019-04-17 11:02 | H ---
[facility] [place] [address] HISTORY AND PHYSICAL Name: RACHELLE STANTON Room #: 504-1 ADM IN M.R.#: [id number] Admission: 04/09/19 Attend Phys: Raoul Ching MD Discharge: Date of : 47 Report #: [id number] THIS REPORT FOR: //name// CC: Raoul Lindo DATE OF SERVICE: 04/09/2019 HISTORY AND PHYSICAL AND POST-ADMISSION PHYSICIAN EVALUATION HISTORY OF PRESENT ILLNESS: The patient is a 73-year-old female who was originally admitted on 04/01/2019 with end-stage degenerative arthritis of the left knee. She underwent a left total knee arthroplasty on 04/01/2019. Her course was complicated by hypotension, treated for pain with Toradol. She needed some IV normal saline with her hypotension along with medication adjustments. She ended up sustaining acute renal failure with acute tubular necrosis with a rising creatinine and Nephrology has been involved. Creatinine went markedly high over 6 and has now started to return back down. Baseline creatinine was 1.3. Nephrology is closely involved and she has not needed dialysis to this point. She also has had some problems with some edema, swelling of both her hands as well as some involving her distal lower extremities. She has had some problems with dizziness and unsteadiness. She has now been admitted for acute in-hospital inpatient rehabilitation. PAST MEDICAL HISTORY: Includes hypertension, hyperlipidemia, diabetes mellitus, peripheral neuropathy, beta cell non-Hodgkin's lymphoma, pulmonary embolism, and gout. MEDICATIONS: Please see the full medication listing. ALLERGIES: ERYTHROMYCIN NOTED. SOCIAL HISTORY: Lives in a house with her , two steps in. Premorbid cane ambulator on occasion when she has gouty arthritis problems. REVIEW OF SYSTEMS: No current complaints of chest pain, shortness of breath, or abdominal discomfort. PHYSICAL EXAMINATION: GENERAL: A 73-year-old pleasant, overweight white female in no obvious distress. VITAL SIGNS: Temperature 98.5, pulse 110, respirations 18, and blood pressure 159/81. NEUROLOGIC: She is alert. Cranial nerves are grossly intact. HEENT: Facies are symmetric. CHEST: Sounded clear to auscultation. [address] [address] HISTORY AND PHYSICAL Name: RACHELLE STANTON [place] Room #: 504-1 ADM IN .R.#: [id number] Admission: 04/09/19 Attend Phys: Raoul Ching MD Discharge: Date of : 47 Report #: [id number] CARDIOVASCULAR: Regular rate and rhythm. ABDOMEN: Bowel sounds positive, nontender. GENITOURINARY AND RECTAL: Deferred. EXTREMITIES: She has functional range of motion of the upper extremities. Edema of her hands appears to have improved some. It is probably 1+ to 2+. In her lower extremities, left knee is dressed. No focal calf swelling, 1+ distal edema of the lower extremities. Functionally, she has improved. Knee range of motion is 100 degrees flexion with extension -7 and she is now ambulating 250 feet. ASSESSMENT: 1. Left total knee arthroplasty 04/01/2019 for left knee degenerative arthritis. 2. Acute renal failure with acute tubular necrosis. Markedly elevated creatinine as noted with Nephrology closely involved. 3. Lower extremity as well as upper extremity edema. 4. Functional mobility and ADL deficits. 5. Lower extremity neuropathy. 6. Diabetes mellitus. 7. Hypertension. 8. Hyperlipidemia. 9. Beta cell non-Hodgkin's lymphoma. 10. Pulmonary embolism. 11. History of gout. PLAN: The patient has been admitted for acute in-hospital inpatient rehabilitation. She has been on Eliquis for DVT prophylaxis. She is now 9 days post her surgery. My understanding is that she is refusing the Eliquis. Functionally, she has progressed nicely and is now ambulating 250 feet with improved knee range of motion. We will defer if this is still needed to Internal Medicine/Orthopedics. From a postadmission physician evaluation perspective, there are no relevant changes since the preadmission screening. See the above review of prior and current medical and functional conditions and comorbidities. Please see the patient's previous and current functional status. As far as risk of complications, the patient has multiple medical comorbidities as noted above. Initial plan of care involves the interdisciplinary acute inpatient rehabilitation program. Measurable functional goals would be for her to become modified independent with transfers, mobility and ADLs and also to improve further, as far as her renal function and overall medical stability, so she can return back to the home setting. Prognosis is reasonably good with estimated length of stay probably at least 5-10 days and will need to see how she does. Potential barriers would include her multiple medical comorbidities and decreased functional status. ADDENDUM [address] [address] HISTORY AND PHYSICAL Name: RACHELLE STANTON [place] Room #: 504-1 ADM IN M.R.#: [id number] Admission: 04/09/19 Attend Phys: Raoul Ching MD Discharge: Date of : 47 Report #: [id number] The patient actually is agreeable to take her Eliquis. It was one of the laxatives that she was not wanting to take. <ELECTRONICALLY SIGNED> By: Raoul Ching MD 04/17/19 1102 0906 0953 Raoul Ching MD /nt
[2019-04-17] MEDS ORDERED: IRON325 PO (11:59)
[2019-04-17] MEDS ORDERED: MIRALAX17 GM PO (11:59)
[2019-04-17] MEDS ORDERED: COLACE 100 MG100 MG PO (11:59)
[2019-04-17] MEDS ORDERED: TYLENOL EXTRA500 MG PO (11:59)
[2019-04-17] MEDS ORDERED: TRADJENTA5 MG PO (11:59)
[2019-04-17] MEDS ORDERED: ELIQUIS2.5 MG PO (11:59)
[2019-04-17 12:29] VITALS: BP 150/64
[2019-04-17] MEDS ORDERED: KEFLEX500 M1 PO (12:30)
[2019-04-17 13:36] VITALS: BP 150/64
--- NOTE | 2019-04-17 18:36 | NUR ---
ASSUMED CARE OF PT AT 0715. PT IS A&OX4 AND VITAL SIGNS ARE STABLE. PT REPORTS PAIN, WHICH IS MANAGED WITH POLAR PACK AND REST. ORDERS FOR DISCHARGE HOME [facility] OBTAINED. PT AT BEDSIDE. PT PROVIDED WITH KNEE HIGH MIQUEL HOSE PER PROVIDER ORDER PRIOR TO DISCHARGE. DISHCARGE MEDICAITONS COMPLETED BY PROVIDER. DISHCARGE EDUCATION COMPLETED. DISCHARGE FORMS SIGNED. PT DENIES FURTHER QUESTIONS. PT TRANSPORTED FROM UNIT BY VOUNTEER TRANSPORT TO ED ENTRANCE.
== END 2019-04-17 13:37 | disposition home health service (06) | DRG 553 ==
LOC: ENTRNSPT 04-17 13:24 → EDTRNSPTSTS 04-17 13:27
PROVIDERS: Hospitalist; Internal Medicine; Nurse Practitioner Family; ADMIT Physical Medicine & Rehabilitation
DX: M17.12 Unilateral primary osteoarthritis, left knee (principal); N17.0 Acute kidney failure with tubular necrosis; D62 Acute posthemorrhagic anemia; E87.1 Hypo-osmolality and hyponatremia; C85.10 Unspecified B-cell lymphoma, unspecified site; E46 Unspecified protein-calorie malnutrition; N39.0 Urinary tract infection, site not specified; I10 Essential (primary) hypertension; E78.5 Hyperlipidemia, unspecified; M10.9 Gout, unspecified; I95.9 Hypotension, unspecified; E83.39 Other disorders of phosphorus metabolism; F43.22 Adjustment disorder with anxiety; E11.42 Type 2 diabetes mellitus with diabetic polyneuropathy; E78.00 Pure hypercholesterolemia, unspecified; Z68.34 Body mass index [BMI] 34.0-34.9, adult; Z88.1 Allergy status to other antibiotic agents; Z88.8 Allergy status to other drugs, medicaments and biological substances; Z79.01 Long term (current) use of anticoagulants; Z86.711 Personal history of pulmonary embolism
CPT/HCPCS: 10112

== ENCOUNTER → 2019-11-07 | Outpatient (CLI) | payer OTHER ==
[~2019-11-07] MED LIST changes: +KEFLEX500 M1 PO; +TRADJENTA5 MG PO; +TYLENOL EXTRA500 MG PO
== END ==
LOC: SJCVC 12:59
PROVIDERS: ATTEND Internal Medicine Cardiovascular Disease
DX: I49.9 Cardiac arrhythmia, unspecified (principal); I10 Essential (primary) hypertension; I25.10 Atherosclerotic heart disease of native coronary artery without angina pectoris; E78.00 Pure hypercholesterolemia, unspecified; E11.9 Type 2 diabetes mellitus without complications; M10.9 Gout, unspecified; Z79.82 Long term (current) use of aspirin; Z79.899 Other long term (current) drug therapy; Z82.49 Family history of ischemic heart disease and other diseases of the circulatory system

== ENCOUNTER → 2020-06-01 | Outpatient (CLI) | payer OTHER | LOC: RAD 14:32 | PROVIDERS: ATTEND Family Medicine | DX: Z12.31 Encounter for screening mammogram for malignant neoplasm of breast (principal); N64.89 Other specified disorders of breast ==

== ENCOUNTER → 2020-06-03 | Outpatient (CLI) | payer OTHER | LOC: RAD 14:30 | PROVIDERS: ATTEND Family Medicine | DX: R92.1 Mammographic calcification found on diagnostic imaging of breast (principal) ==

== ENCOUNTER 2020-06-28 03:17 | Emergency (ER) | payer OTHER ==
[~2020-06-28] VITALS: Ht 162.6 cm; Wt 74.8 kg
--- NOTE | ~2020-06-28 | EMS ---
[address] [address] EMS Patient Care Report Name: RACHELLE STANTON Room #: REG ELVI Harris#: [id number] Admission: 06/28/20 Attend Phys: Discharge: Date of : 47 Report #: [id number] THIS REPORT FOR: //name// Report Transmitted: 06/28/2020 03:16 EMS Care Summary [facility] MED-ACT Incident [id number] @ 06/28/2020 02:24 Incident Location [address] [place] [address] Patient RACHELLE STANTON Female, 74 Years 1945 Patient Address [address] [place] [address] Patient History Diabetes,Hyperlipidemia, Patient Allergies Erythromycin,Toradol, Patient Medications Metoprolol, Atorvastatin, Gabapentin, Chief Complaint I have chest pain. 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 M1136 noted that the pt was alert and interactive, anxious and distressed, and not experiencing any obvious life [address] [address] EMS Patient Care Report Name: RACHELLE STANTON Room #: REG ER Steven#: [id number] Admission: 06/28/20 Attend Phys: Discharge: Date of : 47 Report #: [id number] threat. The pt reported that she started to experience sternal chest pain, provoked by inspiration Appended: The pt reported that her chest pain began at 0900 on 06/27/2020. The pt reported that her chest pain radiated into the right side of her jaw and between her shoulder blades. The pt reported that she took 3 x 81mg ASA prior to calling 911 and reported taking 4 x 81mg ASA per the dispatcher's request. The pt reported that her pain and increased markedly just prior to calling 911, prompting her to call. The pt deferred pain medication via analgesia to the destination facility. The pt's condition remained stable and unchanged during contact with [facility]. Initial Vitals @02:42P: 78,SpO2: 96, @02:44P: 76,BP: 172/82,SpO2: 97, @02:43P: 79,R: 16,BP: 177/94,Pain: 7/10,Temp: 99.1F,Glucose: 116,SpO2: 98,VA Suspected: false @03:04P: 69,BP: 165/82,SpO2: 95, @02:55P: 78,BP: 186/80,SpO2: 96, Assessments @03:06MENTAL:No Abnormalities,SKIN:HEENT:Head/Face: No Abnormalities,Neck/Airway: No Abnormalities,LUNG SOUNDS:General: No Abnormalities,ABDOMEN:General: No Abnormalities,PELVIS//GI:No Abnormalities,EXTREMITIES:Left Arm: No Abnormalities,Right Arm: No Abnormalities,Left Leg: No Abnormalities,Right Leg: No Abnormalities,PULSE:NEURO:No Abnormalities, Impression Chest Pain / Discomfort Procedures @PTA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Response: Unchanged@PTAAspirin - Milligrams (mg) - Oral@02:4212-Lead ECG Timeline HOME CARE SCHEDULER,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,Response: Unchanged HOME CARE SCHEDULER,Aspirin - Milligrams (mg) - Oral, 02:22,Call Received 02:22,Psap Call 02:24,Dispatched 02:25,En Route 02:35,On Scene 02:37,At Patient [facility] [address] [place] [address] EMS Patient Care Report Name: RACHELLE STANTON MICHAEL [id number] Admission: 06/28/20 Attend Phys: Discharge: Date of : 47 Report #: [id number] 02:42,12-Lead ECG, 02:42,BP: / M,PULSE: 78,RR: R,SPO2: 96 Ox,ETCO2: ,BG: ,PAIN: ,GCS: , 02:43,BP: 177/94 M,PULSE: 79,RR: 16 R,SPO2: 98 Ox,ETCO2: ,B,PAIN: 7,GCS: , 02:44,BP: 172/82 M,PULSE: 76,RR: R,SPO2: 97 Ox,ETCO2: ,BG: ,PAIN: ,GCS: , 02:55,Depart Scene 02:55,BP: 186/80 M,PULSE: 78,RR: R,SPO2: 96 Ox,ETCO2: ,BG: ,PAIN: ,GCS: , 03:04,BP: 165/82 M,PULSE: 69,RR: R,SPO2: 95 Ox,ETCO2: ,BG: ,PAIN: ,GCS: , 03:12,At Destination 03:21,Call Closed Disclaimer v1.1 Copyright 2020 [employer] This EMS Care Summary contains data elements from the applicable legal record (which may be displayed differently). It is designed to provide pertinent information for the following purposes: continuity of care, clinical quality, and state data reporting. The complete legal record is available to ED staff and administrators of the receiving hospital in [employer]'s Patient Tracker. All data is provided "as is."
[2020-06-28] MEDS ORDERED: TRAMADOL 50 MG50 MG PO (03:30)
[2020-06-28] MEDS ORDERED: NEURONTIN300 MG PO (03:32)
[2020-06-28] MEDS ORDERED: LOSARTAN-HCTZ1 EAC3 PO (03:32)
[2020-06-28] MEDS ORDERED: ASA81BEC PO (03:33)
[2020-06-28 04:08] LABS: ANION GAP 7 mmol/L (7-16); BUN 22 mg/dL (7-18); CALCIUM 9.1 mg/dL (8.5-10.1); CHLORIDE 102 mmol/L (98-107); CO2 31 mmol/L (21-32); CREATININE 1.2 mg/dL (0.6-1.0); GLUCOSE 117 mg/dL (74-106); POTASSIUM 4.4 mmol/L (3.5-5.1); SODIUM 140 mmol/L (136-145)
[2020-06-28 04:19] LABS: ALBUMIN 3.5 g/dL (3.4-5.0); AMYLASE 48 U/L (25-115); DIRECT BILIRUBIN 0.1 mg/dL (<0.1-0.2); LIPASE 241 U/L (73-393); MAGNESIUM 1.9 mg/dL (1.8-2.4); PHOSPHORUS 3.8 mg/dL (2.6-4.7); SGOT 16 U/L (15-37); SGPT 23 U/L (14-59); TOTAL BILIRUBIN 0.5 mg/dL (0.2-1.0); TOTAL PROTEIN 7.1 g/dL (6.4-8.2); TROPONIN-I <0.06 ng/mL (<0.06)
[2020-06-28 04:42] LABS: ABSOLUTE NEUTROPHILS 7.9 thou/uL (1.4-8.2); BASOPHILS 0.7 % (0.0-2.0); EOSINOPHILS 2.2 % (0.0-3.0); HEMATOCRIT 39.7 % (37.0-47.0); HEMOGLOBIN 12.8 gm/dL (12.0-15.0); LYMPHOCYTES 15.8 % (24.0-44.0); MCH 28.4 pg (26.0-34.0); MCHC 32.1 g/dL (28.0-37.0); MCV 88.5 fL (80.0-100.0); MONOCYTES 10.7 % (1.0-8.0); PLATELET COUNT 313 thou/uL (150-400); POLYS 70.6 % (36.0-66.0); RBC 4.49 mil/uL (4.20-5.00); RDW 15.2 % (10.5-14.5); WBC 11.1 thou/uL (4.0-11.0)
[2020-06-28 07:26] VITALS: BP 145/61
--- NOTE | 2020-06-28 14:18 | EKG ---
[place] [address] [place] [address] ELECTROCARDIOGRAM REPORT Name: RACHELLE STANTON MICHAEL Room #: DEP [facility] [id number] Admission: 06/28/20 Attend Phys: Discharge: 06/28/20 Date of : 47 Report #: [id number] [facility] ED Test Date: 2020-06-28 Test Time: 03:19:10 Pat Name: RACHELLE STANTON Department: Room: Gender: F Activity Specialist: SOCORRO : 1945 Requested By: Saurabh Rudd Order Number: [id number] MD: Chucho Allison Measurements Intervals [place] Rate: 76 P: 66 CO: 151 QRS: 37 QRSD: 83 T: 44 QT: 376 QTc: 423 Interpretive Statements Sinus rhythm No significant abnormality Compared to ECG 04/04/2019 18:14:47 ST (T wave) deviation no longer present Electronically Signed On 06-28-2020 14:18:20 PASTRY MIXER by Chucho Allison [email or web address] <ELECTRONICALLY SIGNED> By: Chucho Allison MD, [facility] 06/28/20 1418 0319 0319 Chucho Allison MD, FACC /EPI
== END 2020-06-28 07:25 | disposition home or self-care (01) ==
LOC: ER 03:17
PROVIDERS: Emergency Medicine
DX: R07.9 Chest pain, unspecified (principal); I10 Essential (primary) hypertension; E78.5 Hyperlipidemia, unspecified; E11.9 Type 2 diabetes mellitus without complications; Z79.899 Other long term (current) drug therapy; Z79.82 Long term (current) use of aspirin; Z88.1 Allergy status to other antibiotic agents; Z88.8 Allergy status to other drugs, medicaments and biological substances; Z91.048 Other nonmedicinal substance allergy status

== ENCOUNTER 2020-07-21 17:32 | Observation (INO) | payer OTHER ==
[~2020-07-21] VITALS: Ht 162.6 cm; Wt 74.4 kg
[~2020-07-21 17:32] MED LIST changes: +ASA81BEC PO; +NEURONTIN300 MG PO; +TRAMADOL 50 MG50 MG PO
[2020-07-21 17:34] VITALS: BP 214/79
[2020-07-21 18:16] LABS: ABSOLUTE NEUTROPHILS 10.3 thou/uL (1.4-8.2); BASOPHILS 0.7 % (0.0-2.0); EOSINOPHILS 1.7 % (0.0-3.0); HEMATOCRIT 40.7 % (37.0-47.0); HEMOGLOBIN 13.1 gm/dL (12.0-15.0); LYMPHOCYTES 13.2 % (24.0-44.0); MCH 28.4 pg (26.0-34.0); MCHC 32.1 g/dL (28.0-37.0); MCV 88.3 fL (80.0-100.0); MONOCYTES 7.8 % (1.0-8.0); PLATELET COUNT 299 thou/uL (150-400); POLYS 76.6 % (36.0-66.0); RBC 4.61 mil/uL (4.20-5.00); RDW 15.3 % (10.5-14.5); WBC 13.5 thou/uL (4.0-11.0)
[2020-07-21 18:35] LABS: ANION GAP 6 mmol/L (7-16); BUN 26 mg/dL (7-18); CALCIUM 9.9 mg/dL (8.5-10.1); CHLORIDE 104 mmol/L (98-107); CO2 31 mmol/L (21-32); CREATININE 1.1 mg/dL (0.6-1.0); GLUCOSE 111 mg/dL (74-106); POTASSIUM 4.7 mmol/L (3.5-5.1); SODIUM 141 mmol/L (136-145)
[2020-07-21 18:37] LABS: ALBUMIN 3.9 g/dL (3.4-5.0); DIRECT BILIRUBIN 0.1 mg/dL (<0.1-0.2); TOTAL BILIRUBIN 0.6 mg/dL (0.2-1.0); TOTAL PROTEIN 7.8 g/dL (6.4-8.2)
[2020-07-21 18:45] LABS: TROPONIN-I <0.06 ng/mL (<0.06)
--- NOTE | 2020-07-21 23:00 | NUR ---
PT ARRIVED FROM ER VIA CART. PT MST STATUS BUT BEING HELD IN ICU OVERFLOW. PT WAS ABLE TO AMBULATE TO THE BED. VITALS TAKEN. A COMPLETE HEAD TO TOE ASSESSMENT WAS PERFORMED. PT C/O LEFT CHEST PAIN 07/08. NITRO PASTE PLACED ON CHEST ORDERED. IVF RUNNING. LAB AT BEDSIDE DRAWING BLOOD. PT RESTING COMFORTABLY IN BED AT THIS TIME.
[2020-07-21 23:09] VITALS: BP 173/72
[2020-07-21] MEDS ORDERED: ASA81BEC PO (23:31)
[2020-07-21 23:53] VITALS: BP 151/50
[2020-07-22] VITALS (7 sets, daily range): BP systolic 126–163; BP diastolic 63–68
[2020-07-22 06:03] LABS: ANION GAP 8 mmol/L (7-16); BUN 21 mg/dL (7-18); CALCIUM 9.3 mg/dL (8.5-10.1); CHLORIDE 104 mmol/L (98-107); CHOLESTEROL 142 mg/dL (<200); CO2 28 mmol/L (21-32); CREATININE 1.1 mg/dL (0.6-1.0); GLUCOSE 112 mg/dL (74-106); HDL CHOLESTEROL 44 mg/dL (>40); LDL CHOLESTEROL 77 mg/dL (<100); POTASSIUM 4.2 mmol/L (3.5-5.1); SODIUM 140 mmol/L (136-145); TC:HDL 3.2 Ratio (Not establshd); TRIGLYCERIDE 106 mg/dL (<150); VLDL 21 mg/dL (<40)
[2020-07-22 06:13] LABS: URINE BILIRUBIN NEGATIVE (Negative); URINE BLOOD NEGATIVE (Negative); URINE CLARITY CLEAR; URINE COLOR YELLOW; URINE GLUCOSE-RANDOM* NEGATIVE (Negative); URINE KETONES NEGATIVE (Negative); URINE NITRITE-REFLEX NEGATIVE (Negative); URINE PROTEIN (DIPSTICK) NEGATIVE (Negative); URINE SPECIFIC GRAVITY 1.015 (1.005-1.035); URINE UROBILINOGEN 0.2 E.U./dl (0.2-1.0)
[2020-07-22 06:14] LABS: URINE LEUKOCYTES-REFLEX 1+ (Negative)
[2020-07-22 06:18] LABS: SERUM ASSESSMENT Clear
--- NOTE | 2020-07-22 06:36 | NUR ---
PT TRANSFERRED FROM ICU. NO CURRENT CP. PT AO4 INDEP IVF INTACT. PT VERBALIZED UNDERSTANDING OF NPO STATUS. PT DECLINED AM NITROPASTE.
--- NOTE | 2020-07-22 07:03 | EKG ---
[address] [place] [address] ELECTROCARDIOGRAM REPORT Name: RACHELLE STANTON MICHAEL Room #: 361-P ADM IN M.R.#: [id number] Admission: 07/21/20 Attend Phys: Karina Spring MD Discharge: Date of : 47 Report #: [id number] [facility] Test Date: 2020-07-21 Test Time: 17:36:11 Pat Name: RACHELLE STANTON Department: Room: 361 Gender: F Ed Tech: RINKU : 1945 Requested By: Cuauhtemoc Musa Order Number: [id number] MD: Heber Simon Measurements Intervals [place] Rate: 73 P: 59 ME: 149 QRS: 43 QRSD: 86 T: 56 QT: 381 QTc: 420 Interpretive Statements Sinus rhythm Baseline wander in lead(s) V2 Compared to ECG 06/28/2020 03:19:10 No significant changes Electronically Signed On 07-22-2020 7:03:22 CDT by Heber Simon [email or web address] <ELECTRONICALLY SIGNED> By: Heber Simon MD, [facility] 07/22/20 0703 D: 03/1735 35 Heber Simon MD, FACC /EPI
[2020-07-22 07:14] LABS: CASTS None Seen /LPF (None Seen); MUCUS 0-3 Light strn/LPF (None Seen); SQUAMOUS 0-3 Few /LPF (0-3); URINE WBC-REFLEX 0-5 Rare /HPF (0-5)
[2020-07-22 07:15] LABS: BACTERIA-REFLEX None Seen /HPF (None Seen); CRYSTALS None Seen /LPF (None Seen); URINE RBC None Seen /HPF (0-2)
--- NOTE | 2020-07-22 07:50 | NUR ---
ASSUMED PT CARE AT SHIFT CHANGE, PT RESTING IN BED, DENIES CHEST PAIN. THIS RN REVIEWED IMPORTANCE OF CALLING FOR HELP IF CHEST PAIN ARISES. PT VERBALIZED UNDERSTANDING. LIGHTS TURNED OFF PER PT REQUEST TO ALLOW PT TO REST. REVIEWED NPO EXCEPT MEDS. PT VERBALIZED UNDERSTANDING.
--- NOTE | 2020-07-22 09:28 | NUR ---
PT AMBULATED TO REST ROOM. STANDBY ASSIST WITH GAIT BELT. PT STATES NO CHEST PAIN, NO DIZZY. PT ABLE TO VOID WITHOUT ISSUE.
--- NOTE | 2020-07-22 11:38 | 2DMMODE ---
[facility] [place] [address] 2 D/M-MODE ECHOCARDIOGRAM Name: RACHELLE STANTON [place] Room #: 361-P ADM IN M.R.#: [id number] Admission: 07/21/20 Attend Phys: Karina Spring MD Discharge: Date of : 49 Report #: [id number] THIS REPORT FOR: cc: Kalin Lindo MD, Rene P. MD Park, Jin S. MD ~ APPROVED REPORT Study performed: 07/22/2020 08:22:07 EXAM: Comprehensive 2D, Doppler, and color-flow Echocardiogram Patient Location: Bedside Room #: 361 BSA: 1.80 HR: 75 bpm BP: 160/68 mmHg Rhythm: NSR Other Information Study Quality: Good Indications Diabetes Chest Pain Hypertension/HDD 2D Dimensions RVDd: 28.35 mm IVSd: 8.95 (7-11mm) LVOT Diam: 21.64 (18-24mm) LVDd: 44.86 mm PWd: 9.27 (7-11mm) Ascending Ao: 26.75 (22-36mm) LVDs: 25.34 (25-40mm) Aortic Root: 31.61 mm IVC: 12.00 mm Volumes Left Atrial Volume (Systole) Single Plane 4CH: 37.56 mL Single Plane 2CH: 61.31 mL LA ESV Index: 31.00 mL/m2 Aortic Valve AoV Peak Cortez.: 1.30 m/s AO Peak Gr.: 6.80 mmHg LVOT Max P.31 mmHg LVOT Max V: 1.04 m/s [facility] [address] [address] 2 D/M-MODE ECHOCARDIOGRAM Name: RACHELLE STANTON [place] Room #: 361-P [place] [facility]#: [id number] Admission: 07/21/20 Attend Phys: Karina Spring MD Discharge: Date of : 49 Report #: [id number] MASSIEL Vmax: 2.93 cm2 Mitral Valve E/A Ratio: 0.9 MV Decel. Time: 224.92 ms MV E Max Cortez.: 0.77 m/s MV A Cortez.: 0.82 m/s MV PHT: 65.23 ms IVRT: 92.27 ms Pulmonary Valve PV Peak Cortez.: 0.88 m/s PV Peak Gr.: 3.07 mmHg Pulmonary Vein P Vein A: 0.27 m/s P Vein A Dur.: 152.2 msec Tricuspid Valve TR Peak Cortez.: 2.77 m/s TR Peak Gr.: 30.80 mmHg PA Pressure: 36.00 mmHg Left Ventricle The left ventricle is normal size. There is normal LV segmental wall motion. There is normal left ventricular wall thickness. The left ventricular systolic function is normal. The left ventricular ejection fraction is within the normal range. LVEF is 55-60%. Grade I - abnormal relaxation pattern. Right Ventricle The right ventricle is normal size. The right ventricular systolic function is normal. Atria The left atrium size is normal. The right atrium size is normal. Aortic Valve The aortic valve is normal in structure. No aortic regurgitation is present. There is no aortic valvular stenosis. Mitral Valve The mitral valve is normal in structure. Mild mitral regurgitation. No evidence of mitral valve stenosis. Tricuspid Valve [facility] [address] [address] 2 D/M-MODE ECHOCARDIOGRAM Name: RACHELLE STANTON [place] Room #: 361-P [place] .R.#: [id number] Admission: 07/21/20 Attend Phys: Karina Spring MD Discharge: Date of : 49 Report #: [id number] The tricuspid valve is normal in structure. There is mild tricuspid regurgitation. Estimated PAP 36 mmHg. Pulmonic Valve The pulmonary valve is normal in structure. There is no pulmonic valvular regurgitation. Great Vessels The aortic root is normal in size. IVC is normal in size and collapses >50% with inspiration. Pericardium There is no pericardial effusion. <Conclusion> The left ventricle is normal size. There is normal left ventricular wall thickness. The left ventricular systolic function is normal. Grade I - abnormal relaxation pattern. The right ventricle is normal size. The left atrium size is normal. The aortic valve is normal in structure. Mild mitral regurgitation. There is mild tricuspid regurgitation. Estimated PAP 36 mmHg. <ELECTRONICALLY SIGNED> By: Flavio Womack MD 07/22/20 1137 113 36 Flavio Womack MD /INF
--- NOTE | 2020-07-22 16:24 | EKG ---
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 Out: LOPEZ : 1945 Requested By: Cherri Pagan Order Number: [id number] MD: Chucho Allison Measurements Intervals [place] Rate: 73 P: 69 AK: 149 QRS: 32 QRSD: 87 T: 47 QT: 402 QTc: 443 Interpretive Statements Sinus rhythm Poor R wave progression Nonspecific T wave abnormality Compared to ECG 07/21/2020 17:36:11 T wave abnormality is now present Electronically Signed On 07-22-2020 16:24:21 CDT by Chucho Allison [email or web address] <ELECTRONICALLY SIGNED> By: Chucoh Allison MD, [facility] 07/22/20 1624 3 3 Chucho Allison MD, [facility] /EPI
[2020-07-23 00:06] LABS: GLYCOHEMOGLOBIN (HGB A1C) 6.2 % (4.8-5.6)
== END 2020-07-22 13:46 | disposition home or self-care (01) ==
LOC: ER 17:32 → 3W 20:25 → EROBS 20:25 → 3W 20:25 → ICU 23:42 → 3W 23:54
PROVIDERS: Emergency Medicine; Nurse Practitioner; Nurse Practitioner Family; ADMIT Internal Medicine; ATTEND Internal Medicine
DX: R07.89 Other chest pain (principal); E78.5 Hyperlipidemia, unspecified; I10 Essential (primary) hypertension; E11.40 Type 2 diabetes mellitus with diabetic neuropathy, unspecified; C81.90 Hodgkin lymphoma, unspecified, unspecified site; N17.0 Acute kidney failure with tubular necrosis; M10.472 Other secondary gout, left ankle and foot; M10.471 Other secondary gout, right ankle and foot; E78.00 Pure hypercholesterolemia, unspecified; Z79.82 Long term (current) use of aspirin; Z79.899 Other long term (current) drug therapy
CPT/HCPCS: 10203

== ENCOUNTER → 2020-07-24 | Outpatient (CLI) | payer OTHER | LOC: SJCVCIMAG 06:57 | PROVIDERS: ATTEND Internal Medicine Cardiovascular Disease | DX: I49.3 Ventricular premature depolarization (principal); R00.0 Tachycardia, unspecified; R93.1 Abnormal findings on diagnostic imaging of heart and coronary circulation; I25.10 Atherosclerotic heart disease of native coronary artery without angina pectoris; I10 Essential (primary) hypertension; E78.00 Pure hypercholesterolemia, unspecified; E11.9 Type 2 diabetes mellitus without complications; M10.9 Gout, unspecified; E78.5 Hyperlipidemia, unspecified; Z72.89 Other problems related to lifestyle; Z79.899 Other long term (current) drug therapy; Z86.711 Personal history of pulmonary embolism; Z79.82 Long term (current) use of aspirin; Z88.1 Allergy status to other antibiotic agents; Z88.8 Allergy status to other drugs, medicaments and biological substances; Z88.6 Allergy status to analgesic agent ==

== ENCOUNTER → 2020-09-10 | Outpatient (CLI) | payer OTHER | LOC: ULTRA 09:08 | PROVIDERS: ATTEND Family Medicine | DX: R79.89 Other specified abnormal findings of blood chemistry (principal); J98.11 Atelectasis ==

== ENCOUNTER 2020-10-09 12:42 | Inpatient (IN) | payer OTHER ==
[~2020-10-09] VITALS: Ht 165.1 cm; Wt 74.4 kg
--- NOTE | ~2020-10-09 | EMS ---
[address] [address] EMS Patient Care Report Name: RACHELLE STANTON Room #: PRE M.R.#: [id number] Admission: Attend Phys: Discharge: Date of : 49 Report #: [id number] THIS REPORT FOR: //name// Report Transmitted: 10/09/2020 12:30 EMS Care Summary [facility] MED-ACT Incident [id number] @ 10/09/2020 11:53 Incident Location [address] [place] [address] Patient RACHELLE STANTON Female, 75 Years 1945 Patient Address [address] [place] [address] Patient History Diabetes,Hypertension (HTN), Patient Allergies Erythromycin,Toradol, Patient Medications Metoprolol, Gabapentin, Tradjenta, Atorvastatin, Allopurinol, Aspirin, Losartan, Chief Complaint "felt faint" / palpitations Disposition Transported No Lights/[place] Dispatch Reason Heart Problems/AICD Transported To [facility] Narrative Pt is found generally supine on the couch. Pt states at approx 9:30 this am she felt her BP was low. Pt states her BP machine took her pulse and states at that time it was irregular. Pt states she does not have a hx afib. Pt states she was evaluated for chest pain back in June, but states she was not diagnosed with [address] [address] EMS Patient Care Report Name: RACHELLE STANTON Room #: [facility].#: [id number] Admission: Attend Phys: Discharge: Date of : 49 Report #: [id number] anything - pt states she had multiple tests at that time. Pt states. Pt also states she takes Rx for her HTN. Pt states she has had some changes with her BP Rx due to her BP fluctuating within the last 2-3wks. Pt states she would feel slightly faint whenever she would stand. Pt denied: CP, SOB, abd pain, jaw/neck/arm pain, back pain, weakness, n/v/d/fv/chills. Pt expressed no further complaints/discomfort. Tx= VS, EKG/12lead-afib with high HR, pt able to ambulate short distance to cot and secured without incident. IV unsuccessful. En route= VS, EKG/12lead-afib, attempted valsalva maneuver without success unable to send 12lead to [facility] due to connection, pt states she feels okay laying supine and has no changes en route. Initial Vitals @12:37P: 166,R: 16,BP: 133/81,GCS: 15,SpO2: 96,Revised Trauma: 12, @12:03P: 181,R: 16,GCS: 15,SpO2: 98, @12:24P: 186,R: 16,GCS: 15,SpO2: 97, @12:06P: 196,R: 16,GCS: 15,SpO2: 99, @12:11P: 190,R: 16,BP: 157/90,GCS: 15,SpO2: 99,Revised Trauma: 12, @12:03P: 166,R: 18,GCS: 15,SpO2: 100, @12:18P: 183,R: 16,BP: 131/96,GCS: 15,SpO2: 97,Revised Trauma: 12, @12:30P: 170,R: 16,BP: 129/97,GCS: 15,SpO2: 96,Revised Trauma: 12, @12:05P: 183,R: 16,BP: 111/76,GCS: 15,SpO2: 100,Revised Trauma: 12, @12:02P: 170,R: 16,BP: 153/92,Pain: 0/10,GCS: 15,Temp: 98F,SpO2: 100,Revised Trauma: 12, Assessments @12:02MENTAL:Person Oriented,Time Oriented,Place Oriented,Event Oriented,SKIN:HEENT:LUNG SOUNDS:ABDOMEN:PELVIS//GI:EXTREMITIES:PULSE:Radial: 3+ Bounding,NEURO: Impression Cardiac arrhythmia/dysrhythmia Procedures @PTA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@12:15Saline Lock cc (18 ga) Site: Antecubital-RightResponse: UnchangedFailed@12:16Saline Lock cc (20 ga) Site: Antecubital-RightResponse: UnchangedFailed@12:20Response: UnchangedFailed@12:2412-Lead ECG@12:0312-Lead ECG Timeline 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,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, 11:52,Call Received 11:52,Psap Call 11:53,Dispatched 11:55,En Route 11:59,On Scene [address] [address] EMS Patient Care Report Name: RACHELLE STANTON MICHAEL Room #: PRE M.R.#: [id number] Admission: Attend Phys: Discharge: Date of : 49 Report #: [id number] 12:00,At Patient 12:02,BP: 153/92 M,PULSE: 170,RR: 16 R,SPO2: 100 Ox,ETCO2: ,BG: ,PAIN: 0,GCS: 15, 12:03,BP: / M,PULSE: 166,RR: 18 R,SPO2: 100 Ox,ETCO2: ,BG: ,PAIN: ,GCS: 15, 12:03,12-Lead ECG, 12:03,BP: / M,PULSE: 181,RR: 16 R,SPO2: 98 Ox,ETCO2: ,BG: ,PAIN: ,GCS: 15, 12:05,BP: 111/76 M,PULSE: 183,RR: 16 R,SPO2: 100 Ox,ETCO2: ,BG: ,PAIN: ,GCS: 15, 12:06,BP: / M,PULSE: 196,RR: 16 R,SPO2: 99 Ox,ETCO2: ,BG: ,PAIN: ,GCS: 15, 12:11,BP: 157/90 M,PULSE: 190,RR: 16 R,SPO2: 99 Ox,ETCO2: ,BG: ,PAIN: ,GCS: 15, 12:15,Saline Lock cc 18 ga Site: Antecubital-Right,Response: UnchangedFailed, 12:16,Saline Lock cc 20 ga Site: Antecubital-Right,Response: UnchangedFailed, 12:18,Depart Scene 12:18,BP: 131/96 M,PULSE: 183,RR: 16 R,SPO2: 97 Ox,ETCO2: ,BG: ,PAIN: ,GCS: 15, 12:20,Response: UnchangedFailed, 12:24,12-Lead ECG, 12:24,BP: / M,PULSE: 186,RR: 16 R,SPO2: 97 Ox,ETCO2: ,BG: ,PAIN: ,GCS: 15, 12:30,BP: 129/97 M,PULSE: 170,RR: 16 R,SPO2: 96 Ox,ETCO2: ,BG: ,PAIN: ,GCS: 15, 12:37,BP: 133/81 M,PULSE: 166,RR: 16 R,SPO2: 96 Ox,ETCO2: ,BG: ,PAIN: ,GCS: 15, 12:38,At Destination 12:58,Call Closed Disclaimer v1.1 Copyright 2020 [employer] This EMS Care Summary contains data elements from the applicable legal record (which may be displayed differently). It is designed to provide pertinent information for the following purposes: continuity of care, clinical quality, and state data reporting. The complete legal record is available to ED staff and administrators of the receiving hospital in [employer]'s Patient Tracker. All data is provided "as is."
[2020-10-09 12:43] VITALS: BP 159/73
[2020-10-09] MEDS ORDERED: LOPRESSOR50 MG PO (12:56)
[2020-10-09 13:01] LABS: ABSOLUTE NEUTROPHILS 15.3 thou/uL (1.4-8.2); BASOPHILS 0.4 % (0.0-2.0); EOSINOPHILS 0.8 % (0.0-3.0); HEMATOCRIT 41.4 % (37.0-47.0); HEMOGLOBIN 13.4 gm/dL (12.0-15.0); LYMPHOCYTES 8.2 % (24.0-44.0); MCH 27.6 pg (26.0-34.0); MCHC 32.4 g/dL (28.0-37.0); MCV 85.3 fL (80.0-100.0); MONOCYTES 5.7 % (1.0-8.0); PLATELET COUNT 287 thou/uL (150-400); POLYS 84.9 % (36.0-66.0); RBC 4.85 mil/uL (4.20-5.00); RDW 16.6 % (10.5-14.5)
[2020-10-09 13:11] LABS: ANION GAP 13 mmol/L (7-16); BUN 17 mg/dL (7-18); CALCIUM 9.6 mg/dL (8.5-10.1); CHLORIDE 102 mmol/L (98-107); CO2 26 mmol/L (21-32); CREATININE 1.2 mg/dL (0.6-1.0); GLUCOSE 137 mg/dL (74-106); POTASSIUM 3.9 mmol/L (3.5-5.1); SODIUM 141 mmol/L (136-145)
[2020-10-09 13:25] LABS: APTT 24.6 Seconds (24.5-32.8); INR 0.98; PROTIME 10.7 Seconds (10.5-12.1)
[2020-10-09 13:29] LABS: ALBUMIN 3.2 g/dL (3.4-5.0); SGOT 16 U/L (15-37); SGPT 22 U/L (30-65); TOTAL BILIRUBIN 0.6 mg/dL (0.2-1.0); TOTAL PROTEIN 7.9 g/dL (6.4-8.2); TROPONIN-I <0.06 ng/mL (<0.06)
[2020-10-09 15:11] VITALS: BP 119/56
[2020-10-09 15:34] VITALS: BP 112/56
--- NOTE | 2020-10-09 15:54 | EKG ---
[place] [address] [facility] [place] [place] [address] ELECTROCARDIOGRAM REPORT Name: RACHELLE STANTON MICHAEL Room #: 207-P ADM IN M.R.#: [id number] Admission: 10/09/20 Attend Phys: Farhana Carlos Discharge: Date of : 49 Report #: [id number] [facility] ED Test Date: 2020-10-09 Test Time: 12:46:45 Pat Name: RACHELLE STANTON Department: Room: 207 Gender: F Insights Manager: DARIUS : 1945 Requested By: Mihai Puckett Order Number: [id number] MD: Heber Simon Measurements Intervals [place] Rate: 184 P: [place]: QRS: 40 QRSD: 82 T: QT: 269 QTc: 471 Interpretive Statements Atrial fibrillation with rapid V-rate Borderline low voltage, extremity leads Repolarization abnormality, prob rate related Baseline wander in lead(s) II,III,aVF,V3 Compared to ECG 07/22/2020 08:04:30 Early repolarization now present Sinus rhythm no longer present Poor R-wave progression no longer present T-wave abnormality no longer present Electronically Signed On 10-09-2020 15:54:36 CDT by Heber Simon [email or web address] <ELECTRONICALLY SIGNED> By: Heber Simon MD, FAC 10/09/20 1554 1246 1246 Heber Simon MD, [facility] /EPI
--- NOTE | 2020-10-09 15:55 | EKG ---
[place] [address] [facility] [place] [address] ELECTROCARDIOGRAM REPORT Name: RACHELLE STANTON MICHAEL Room #: 207-P ADM IN M.R.#: [id number] Admission: 10/09/20 Attend Phys: Farhana Carlos Discharge: Date of : 49 Report #: [id number] [facility] ED Test Date: 2020-10-09 Test Time: 13:49:24 Pat Name: RACHELLE STANTON Department: Room: 207 Gender: F Line Out Man: COCNHITA GOMEZ : 1945 Requested By: Mihai Puckett Order Number: [id number] MD: Heber Simon Measurements Intervals [place] Rate: 85 P: 53 MT: 154 QRS: 31 QRSD: 71 T: 39 QT: 342 QTc: 407 Interpretive Statements Sinus rhythm Probable left atrial enlargement Compared to ECG 10/09/2020 12:46:45 Atrial fibrillation no longer present Early repolarization no longer present Electronically Signed On 10-09-2020 15:54:43 CDT by Heber Simon [email or web address] <ELECTRONICALLY SIGNED> By: Heber Simon MD, [facility] 10/09/20 1554 1349 134 Heber Simon MD, FACC /EPI
[2020-10-09 16:45] VITALS: BP 127/55
[2020-10-09 19:16] VITALS: BP 110/42
--- NOTE | 2020-10-10 03:26 | NUR ---
PT IS NSR ON THE MONITOR. PLEASANT OREINTED TO SELF SOME FOREGEFULLNESS NOTED. VITALS STABLE.LUNGS CLEAR ON ROOM AIR. HEART HEALTHT DIET. UP TO BATHROOM WITH ASSIST X1. DENEIS ANY COMPLAINTS OF PAIN NOTED. CALLL LIGHT WITHIN REACH IF NEEDS ASSSISTANCE.
[2020-10-10 04:05] LABS: ABSOLUTE NEUTROPHILS 5.7 thou/uL (1.4-8.2); BASOPHILS 0.9 % (0.0-2.0); HEMATOCRIT 35.5 % (37.0-47.0); HEMOGLOBIN 11.5 gm/dL (12.0-15.0); LYMPHOCYTES 23.3 % (24.0-44.0); MCH 28.1 pg (26.0-34.0); MCHC 32.5 g/dL (28.0-37.0); MCV 86.6 fL (80.0-100.0); MONOCYTES 9.8 % (1.0-8.0); PLATELET COUNT 257 thou/uL (150-400); RBC 4.09 mil/uL (4.20-5.00); RDW 16.5 % (10.5-14.5)
[2020-10-10 04:10] LABS: CALCIUM 8.6 mg/dL (8.5-10.1); MAGNESIUM 1.8 mg/dL (1.8-2.4); POTASSIUM 3.7 mmol/L (3.5-5.1)
[2020-10-10 07:24] VITALS: BP 143/72
[2020-10-10] MEDS ORDERED: ELIQUIS5 MG PO (08:17)
[2020-10-10] MEDS ORDERED: TOPROL XL100 MG PO (08:19)
[2020-10-10 11:06] VITALS: BP 143/72
--- NOTE | 2020-10-10 11:37 | NUR ---
PATIENT DISCHARGED, SPOUSE PRESENT DURING DISCHARGE INSTRUCTIONS AND TEACHING. NO QUESTIONS OR CONERNS AT TIME OF TEACHING. PATIENT/SPOUSE WALKED OUT, ESCORTED BY STAFF TO PRIVATE VEHICLE.
== END 2020-10-10 11:42 | disposition home or self-care (01) | DRG 308 ==
LOC: ER 12:42 → 2N 15:46 → EROBS 15:46 → 2N 15:47
PROVIDERS: Emergency Medicine; Nurse Practitioner; ADMIT Hospitalist; ATTEND Hospitalist
DX: I48.20 Chronic atrial fibrillation, unspecified (principal); R65.11 Systemic inflammatory response syndrome (SIRS) of non-infectious origin with acute organ dysfunction; N17.9 Acute kidney failure, unspecified; I10 Essential (primary) hypertension; E78.00 Pure hypercholesterolemia, unspecified; E78.5 Hyperlipidemia, unspecified; M10.9 Gout, unspecified; E11.40 Type 2 diabetes mellitus with diabetic neuropathy, unspecified; D72.829 Elevated white blood cell count, unspecified; Z96.652 Presence of left artificial knee joint; Z20.822 Contact with and (suspected) exposure to COVID-19; Z86.711 Personal history of pulmonary embolism; Z92.21 Personal history of antineoplastic chemotherapy; Z85.72 Personal history of non-Hodgkin lymphomas; Z85.828 Personal history of other malignant neoplasm of skin; Z90.49 Acquired absence of other specified parts of digestive tract; Z79.82 Long term (current) use of aspirin; Z79.84 Long term (current) use of oral hypoglycemic drugs; Z79.899 Other long term (current) drug therapy; Z88.8 Allergy status to other drugs, medicaments and biological substances; Z91.09 Other allergy status, other than to drugs and biological substances
CPT/HCPCS: 10081

== ENCOUNTER → 2020-10-19 | Outpatient (CLI) | payer OTHER ==
[~2020-10-19] MED LIST changes: +ELIQUIS5 MG PO; +LOPRESSOR50 MG PO
== END ==
LOC: SJCVC 13:33
PROVIDERS: ATTEND Internal Medicine Cardiovascular Disease
DX: I48.92 Unspecified atrial flutter (principal); I25.10 Atherosclerotic heart disease of native coronary artery without angina pectoris; I10 Essential (primary) hypertension; E78.00 Pure hypercholesterolemia, unspecified; E11.9 Type 2 diabetes mellitus without complications; M17.10 Unilateral primary osteoarthritis, unspecified knee; Z85.820 Personal history of malignant melanoma of skin; Z82.49 Family history of ischemic heart disease and other diseases of the circulatory system; Z79.899 Other long term (current) drug therapy; Z88.8 Allergy status to other drugs, medicaments and biological substances; Z72.89 Other problems related to lifestyle

== ENCOUNTER 2020-10-26 00:32 | Emergency (ER) | payer OTHER ==
[~2020-10-26] VITALS: Ht 162.6 cm; Wt 73.5 kg
[2020-10-26 01:25] LABS: ABSOLUTE NEUTROPHILS 5.9 thou/uL (1.4-8.2); BASOPHILS 0.7 % (0.0-2.0); EOSINOPHILS 2.1 % (0.0-3.0); HEMATOCRIT 36.9 % (37.0-47.0); HEMOGLOBIN 11.8 gm/dL (12.0-15.0); LYMPHOCYTES 21.5 % (24.0-44.0); MCH 27.6 pg (26.0-34.0); MCV 86.3 fL (80.0-100.0); PLATELET COUNT 305 thou/uL (150-400); POLYS 66.7 % (36.0-66.0); RBC 4.28 mil/uL (4.20-5.00); RDW 17.2 % (10.5-14.5); WBC 8.8 thou/uL (4.0-11.0)
[2020-10-26 01:26] LABS: CALCIUM 8.5 mg/dL (8.5-10.1); CREATININE 1.2 mg/dL (0.6-1.0); POTASSIUM 4.2 mmol/L (3.5-5.1)
[2020-10-26 01:32] LABS: TOTAL BILIRUBIN 0.2 mg/dL (0.2-1.0); TOTAL PROTEIN 6.9 g/dL (6.4-8.2)
[2020-10-26] MEDS ORDERED: NORVASC 2.5 MG2.5 MG PO (02:11)
[2020-10-26 02:43] VITALS: BP 160/69
--- NOTE | 2020-10-26 09:47 | EKG ---
[facility] [place] [address] ELECTROCARDIOGRAM REPORT Name: RACHELLE STANTON MICHAEL [id number] Admission: 10/26/20 Attend Phys: Discharge: 10/26/20 Date of : 49 Report #: [id number] [facility] ED Test Date: 2020-10-26 Test Time: 00:39:31 Pat Name: RACHELLE STANTON Department: Room: Gender: F Sample Tester: BOY : 1945 Requested By: Del Wright Order Number: [id number] MD: Heber Simon Measurements Intervals [place] Rate: 84 P: 74 GA: 144 QRS: 36 QRSD: 78 T: 41 QT: 371 QTc: 439 Interpretive Statements Sinus rhythm Probable left atrial enlargement Low voltage, precordial leads Compared to ECG 10/09/2020 13:49:24 Low QRS voltage now present Electronically Signed On 10-26-2020 9:46:57 CDT by Heber Simon [email or web address] <ELECTRONICALLY SIGNED> By: Heber Simon MD, [facility] 10/26/20 0946 0039 003 Heber Simon MD, FACC /EPI
== END 2020-10-26 02:21 | disposition home or self-care (01) ==
LOC: ER 00:32
PROVIDERS: Emergency Medicine
DX: I10 Essential (primary) hypertension (principal); M10.9 Gout, unspecified; E78.00 Pure hypercholesterolemia, unspecified; E11.40 Type 2 diabetes mellitus with diabetic neuropathy, unspecified; Z86.711 Personal history of pulmonary embolism; Z90.89 Acquired absence of other organs; Z98.51 Tubal ligation status; Z98.890 Other specified postprocedural states; Z88.6 Allergy status to analgesic agent; Z88.1 Allergy status to other antibiotic agents; Z91.048 Other nonmedicinal substance allergy status

== ENCOUNTER → 2020-11-10 | Outpatient (CLI) | payer OTHER ==
[~2020-11-10] MED LIST changes: +NORVASC 2.5 MG2.5 MG PO
== END ==
LOC: SJCVC 14:05
PROVIDERS: ATTEND Internal Medicine Cardiovascular Disease
DX: I25.10 Atherosclerotic heart disease of native coronary artery without angina pectoris (principal); I10 Essential (primary) hypertension; E78.00 Pure hypercholesterolemia, unspecified; I48.92 Unspecified atrial flutter; M10.9 Gout, unspecified; E11.9 Type 2 diabetes mellitus without complications; Z79.899 Other long term (current) drug therapy; Z72.89 Other problems related to lifestyle; Z88.1 Allergy status to other antibiotic agents; Z88.8 Allergy status to other drugs, medicaments and biological substances

== ENCOUNTER → 2021-02-24 | Outpatient (CLI) | payer OTHER | END | disposition home or self-care (01) | LOC: SJCVC 12:40 | PROVIDERS: ATTEND Internal Medicine Cardiovascular Disease | DX: E78.00 Pure hypercholesterolemia, unspecified (principal); Z79.899 Other long term (current) drug therapy ==

== ENCOUNTER → 2021-03-02 | Outpatient (CLI) | payer OTHER | LOC: RAD 14:37 | PROVIDERS: ATTEND Nurse Practitioner | DX: M47.26 Other spondylosis with radiculopathy, lumbar region (principal); M25.78 Osteophyte, vertebrae ==